=== PATIENT | female | born 1985 | race Caucasian/White ===

== ENCOUNTER 2018-03-09 14:48 | Emergency (ER) | payer MEDICAID, SELFPAY ==
[2018-03-09 15:57] VITALS: BP 96/73; PULSE 86; RESP 18; TEMP 36.9; O2SAT 98
--- NOTE | 2018-03-09 15:58 | DI.RAD_ITS ---
SYMPTOM/DIAGNOSIS: RT WRIST PAIN AFTER FALL RIGHT WRIST: Four views. Comparison is made with 08/29/15. No acute fracture or dislocation is seen. There is an oblique lucency seen through the ulnar styloid process which is visualized on the prior examination from 08/29/15. The soft tissues are unremarkable. IMPRESSION: No acute fracture or dislocation.
--- NOTE | 2018-03-09 15:59 | W.ED.GENAD ---
Discharge Plan Discharge Details Chief Complaint: Orthopedic Primary Care Provider: Jhoana Pedraza V ED Provider: Santy Loya Home Meds and New Rx's Prescriptions: No Action ibuprofen 800 MG tablet 800 mg PO Q6H PRN PRN (Reason: Pain) Qty: 20 RF: 0 Medical Decision Making 32yof with R distal radius pain after trip and fall on outstretched hand yesterday at home. No other injury. Normal neuro/motor testing. Referred for XRay which reveals question lucency through ulnar styloid and narrowing of scapholunate joint. Given patients pain she was placed in volar splint and will followup with orthopedics. HPI General Mode of arrival: ambulatory. Date/Time Provider Initiated Documentation: 03/09/18 15:47. Limitations to Documentation: no limitations. Information obtained by: patient. History of Present Illness described as mild, Quality is described as aching, and is localized to the right and upper extremity. Patient reports no radiation. Patient started experiencing this day(s) and it has been constant. No relieving factors improve symptom(s), No exacerbating factors reported . HPI Narrative: R wrist pain after trip and fall forward onto outstretched hand last night. No other injury, no numbness or tingling. Related Data Home Medications Medication Instructions Recorded Confirmed ibuprofen 800 mg PO Q6H PRN PRN #20 tablet 08/29/15 Previous Rx's Medication Instructions Recorded ibuprofen 800 mg PO Q6H PRN PRN #20 tablet 08/29/15 Allergies Allergy/AdvReac Type Severity Reaction Status Date / Time No Known Allergies Allergy Unverified 08/29/15 12:02 Review of Systems Review of Systems 11/09 o/w - [facility] Social History Smoking/Tobacco Use Status: Current every day Exam Const General: cooperative, healthy appearing, comfortable and no acute distress Chest Chest: normal palpation of entire chest wall Resp Effort & Inspection: normal respiratory effort Extrem General: normal to inspection, full ROM, normal capillary refill and other (R distal radius swelling and pain on palpation dorsal. Distal sensation intact. Pt able to make ok sign, cross index over long, touch thumb to 5th.) Psych Appearance: grossly normal Mental Status: mental status grossly normal Procedures Orthopedic Splinting/Casting Injury #1: Side: right Upper Extremity Injury Location: wrist Upper Extremity Immobilizer: volar spint Additional Comments: splinted with fiberglass
--- NOTE | 2018-03-09 16:02 | ED.GENADUL_ITS ---
Discharge Plan Discharge Details Chief Complaint: Orthopedic Primary Care Provider: Jhoana Pedraza V ED Provider: Santy Loya Home Meds and New Rx's Prescriptions: No Action ibuprofen 800 MG tablet 800 mg PO Q6H PRN PRN (Reason: Pain) Qty: 20 RF: 0 Medical Decision Making 32yof with R distal radius pain after trip and fall on outstretched hand yesterday at home. No other injury. Normal neuro/motor testing. Referred for XRay which reveals question lucency through ulnar styloid and narrowing of scapholunate joint. Given patients pain she was placed in volar splint and will followup with orthopedics. HPI General Mode of arrival: ambulatory . Date/Time Provider Initiated Documentation: 03/09/18 15:47 . Limitations to Documentation: no limitations . Information obtained by: patient . History of Present Illness described as mild, Quality is described as aching, and is localized to the right and upper extremity. Patient reports no radiation. Patient started experiencing this day(s) and it has been constant. No relieving factors improve symptom(s), No exacerbating factors reported . HPI Narrative: R wrist pain after trip and fall forward onto outstretched hand last night. No other injury, no numbness or tingling. Related Data Home Medications Medication Instructions Recorded Confirmed ibuprofen 800 mg PO Q6H PRN PRN #20 tablet 08/29/15 Previous Rx's Medication Instructions Recorded ibuprofen 800 mg PO Q6H PRN PRN #20 tablet 08/29/15 Allergies Allergy/AdvReac Type Severity Reaction Status Date / Time No Known Allergies Allergy Unverified 08/29/15 12:02 Review of Systems Review of Systems 11/09 o/w - [facility] Social History Smoking/Tobacco Use Status: Current every day Exam Const General: cooperative, healthy appearing, comfortable and no acute distress Chest Chest: normal palpation of entire chest wall Resp Effort & Inspection: normal respiratory effort Extrem General: normal to inspection, full ROM, normal capillary refill and other (R distal radius swelling and pain on palpation dorsal. Distal sensation intact. Pt able to make ok sign, cross index over long, touch thumb to 5th.) Psych Appearance: grossly normal Mental Status: mental status grossly normal Procedures Orthopedic Splinting/Casting Injury #1: Side: right Upper Extremity Injury Location: wrist Upper Extremity Immobilizer: volar spint Additional Comments: splinted with fiberglass
--- NOTE | 2018-03-09 16:44 | DI.VRAD_ITS ---
EXAM: XR Right Wrist Complete, 3 or more Views EXAM DATE/TIME: 03/09/2018 3:59 PM CLINICAL HISTORY: 32 years old, female; Pain; Wrist; Right; Patient HX: Per PT: Tripped and fell 03/08 evening TECHNIQUE: XR Right wrist 3 or more views. COMPARISON: CR RIGHT HAND COMPLETE 08/29/2015 12:45 PM FINDINGS: Bones/joints: There is narrowing of the scapholunate joint. There is a horizontal linear lucency through the ulnar styloid. Soft tissues: There is dorsal soft tissue swelling. IMPRESSION: 1. Dorsal soft tissue swelling. This is a nonspecific finding that can be seen with edema, infection, or trauma. 2. There is a horizontal linear lucency through the ulnar styloid. This is favored to represent variation in trabeculation. However, it was not definitely identified on prior examination. Differences in patient positioning may be contributing. Correlation with concern for subtle fracture in this region suggested. 3. Narrowing of the scapholunate joint. Other findings as above. If symptoms remain concerning, consider short-term followup imaging or alternative imaging modalities. Dictated and Authenticated by: Nicole Sorensen MD. Ordering:BEVERLY SIM MD
[2018-03-09 18:09] VITALS: BP 96/73; PULSE 86; RESP 18; TEMP 36.9; O2SAT 98
== END 2018-03-09 18:10 | disposition home or self-care (01) ==
PROVIDERS: Emergency Provider Emergency Medicine; PCP Family Medicine
DX: S69.91XA Unspecified injury of right wrist, hand and finger(s), initial encounter (principal); W01.0XXA Fall on same level from slipping, tripping and stumbling without subsequent striking against object, initial encounter
CPT/HCPCS: 25650; 29125; 99283; 73110

== ENCOUNTER 2018-03-17 10:27 | Outpatient (CLI) | payer MEDICAID, SELFPAY ==
--- NOTE | 2018-03-17 10:09 | DI.RAD_ITS ---
SYMPTOM/DIAGNOSIS: PAIN RIGHT WRIST: A transverse radiolucency is noted at the waist of the navicular and could represent a nondisplaced fracture or vascular groove. There is otherwise no evidence of a fracture or dislocation. If there is any further clinical question, further assessment with CT is recommended.
== END 2018-03-17 10:47 ==
PROVIDERS: PCP Family Medicine; Visit Provider Orthopaedic Surgery
DX: M25.531 Pain in right wrist (principal); R93.7 Abnormal findings on diagnostic imaging of other parts of musculoskeletal system
CPT/HCPCS: 73110

== ENCOUNTER 2018-03-31 11:05 | Outpatient (CLI) | payer MEDICAID, SELFPAY ==
--- NOTE | 2018-03-31 11:01 | DI.RAD_ITS ---
SYMPTOMS/DIAGNOSIS: INJURY RIGHT WRIST: Two views. Comparison 03/09/18. No acute or healing fracture or dislocation is identified. The soft tissues are unremarkable. IMPRESSION: No acute abnormality.
== END 2018-03-31 11:25 ==
PROVIDERS: PCP Family Medicine; Visit Provider Physician Assistant Surgical
DX: M25.531 Pain in right wrist (principal); S69.81XA Other specified injuries of right wrist, hand and finger(s), initial encounter
CPT/HCPCS: 73100

== ENCOUNTER 2018-04-17 15:46 | Inpatient (IN) | payer MEDICAID, SELFPAY ==
[2018-04-17] VITALS (62 sets, daily range): BP systolic 97–138; BP diastolic 60–102; PULSE 80–141; RESP 4–33; TEMP 37–37.3; O2SAT 92–99
--- NOTE | 2018-04-17 16:09 | W.ED.GENAD ---
Discharge Plan Disposition Patient Disposition: [facility] INPATIENT Condition: Fair Discharge Details Chief Complaint: RespSymp Clinical Impression: Acute respiratory distress, Acute bronchospasm, Bronchitis, Hypoxia Reason For Visit: ASTHMA Admit Date/Time: 04/17/18 18:51 Admit Provider: Christiano Syed Attending Provider: Christiano Syed Primary Care Provider: Jhoana ePdraza V ED Provider: Sara Miller Discharge Data Discharge Date/Time-TO BE ENTERED AT DEPARTURE: 04/17/18 19:59 Medical Decision Making 32-year-old female who presents with cough with chest congestion and shortness of breath for the past 2 and half weeks. She also complained of right ear pain, sore throat, and rhinorrhea. States the sore throat mainly occurs with cough and the right ear pain is now resolved. Heart rate 100-110s. O2 saturation 90-92% on room air. Patient is on Mirena IUD, last period 6 months ago. Denies recent travel, recent surgeries, leg pain or swelling. ENT exam within normal limits. Patient has scattered wheezing and rhonchi throughout. No leg swelling or calf tenderness. Appears most consistent with likely acute bronchitis. Will give a neb treatment and steroids and reassess. Will check a urine test. 1645 -- patient denies any relief after first neb. Will give a 5 mg neb and reassess. 1715 -- pt does not feel any better after 5mg neb. RR 30s, O2 sats 88% on RA, HR 130s. Pt appears more uncomfortable, sitting forward, accessory muscle use, poor peripheral perfusion noted in distal UE. Will place on bipap, give another neb, obtain abg. Will check labs, d dimer, ekg, cxr, give another 60mg solu-medrol, and add dose mag and bolus ivf. Pt placed on nonrebreather and sats improved to 96%. 1800 -- pt improved on bipap - RR 16-17, O2 sat 98%, HR 116. She appears more relaxed, less accessory muscle use. 1830 -- ABG notes pH of 7.39, PCO2 34, O2 sat 99%; on 70% O2 bipap. Pt's skin color/perfusion improved. Remainder of labs reviewed and notes white blood cell count 11.7. Hemoglobin 15.8. D-dimer negative at 482. Potassium 3.3. Anion gap 11.3. Lactate 2.8. Troponin negative. Chest x-ray notes minimal bilateral basilar septal line thickening suggestive of minimal interstitial disease but no other acute findings. Due to patient's acute status, on BiPAP, will admit for continued monitoring and workup. Unsure if patient presentation due to bronchitis, underlying lung disease, pneumonia. 1834 -- case discussed with hospitalist -accepts patient for admission. D/w considering CT chest for further eval. Will hold on antibiotics at this time. 1899 -- EKG notes a rate of 117, sinus tachycardia, no acute ST elevation noted, QTc 321, QRS 91. HPI General Mode of arrival: ambulatory. Date/Time Provider Initiated Documentation: 04/17/18 15:47. Limitations to Documentation: no limitations. Information obtained by: patient. HPI Narrative: Patient is a 32-year-old female who presents with cough and shortness of breath for the past 2 weeks. Patient states her symptoms started with a right earache 2-1/2 weeks ago, which then led to nasal and chest congestion. Patient states her cough is mainly dry but is occasionally productive of white or yellow sputum. Patient also admits to shortness of breath and chest pain that feels more like irritation in her chest and worse with coughing. Patient denies known fever, neck pain, sore throat. She does admit to occasional headache that happens mainly with coughing. She has been taking ibuprofen and DayQuil without relief. Past medical history: None Surgical history: None Social history: Smokes tobacco, denies alcohol or drugs. Meds: None Allergies: None LMP: 6 months ago - has IUD PCP: [facility] Related Data Home Medications Medication Instructions Recorded Confirmed ibuprofen 800 mg PO Q6H PRN PRN #20 tab 08/29/15 04/17/18 Previous Rx's Medication Instructions Recorded ibuprofen 800 mg PO Q6H PRN PRN #20 tab 08/29/15 Allergies Allergy/AdvReac Type Severity Reaction Status Date / Time No Known Allergies Allergy Unverified 04/17/18 15:53 General Stated Complaint: RespSymp SREEDHAR: 3 Review of Systems Review of Systems All systems reviewed & are unremarkable except as noted in HPI and below Constitutional Reports as per HPI, Denies chills and Denies fever(s) Eyes Denies blurry vision ENT Denies dizziness, Denies sore throat and Denies throat swelling Cardiovascular Reports chest pain and Reports dyspnea Respiratory Reports cough, Reports dyspnea and Reports wheezing Gastrointestinal Denies abdominal pain, Denies diarrhea and Denies vomiting Genitourinary Denies hematuria and Denies dysuria Musculoskeletal Denies back pain and Denies numbness Integumentary/Breasts Denies lesions and Denies rash Neurologic Denies dizziness and Denies numbness Allergic/Immunologic Denies throat swelling and Reports wheezing [facility] Social History Smoking/Tobacco Use Status: Current every day Exam Const General: cooperative and ill appearing other (mildly with cold symptoms - frequent coughing, blowing nose) Orientation: alert, awake and oriented x3 HENMT Head: normal to inspection Ears: hearing grossly normal bilaterally, external ears normal and TM's normal bilaterally General nose exam: nasal discharge (clear b/l) Face and sinus: normal facial exam Mouth: oral mucosae normal Teeth and gingiva: dentition normal Throat: posterior oropharynx normal, uvula midline, no peritonsillar masses and no uvular edema Eyes General: appearance normal, both eyes and all related structures Eyelids: eyelids normal Conjunctivae: conjunctival abnormality bilaterally conjunctival injection Pupils: PERRL EOM: EOM intact bilaterally Neck Neck: normal visual inspection Lymphatic: no lymphadenopathy noted Chest Chest: normal inspection of the chest Resp Effort & Inspection: normal respiratory effort and able to speak in complete sentences Auscultation: rhonchi lower bilaterally and wheezes lower bilaterally and upper bilaterally Cardio Rate: tachycardic Rhythm: regular rhythm GI Inspection: normal to inspection Palpation: soft, not firm, no guarding, no hepatosplenomegaly, no masses and nontender Auscultation: normal bowel sounds Skin General skin exam: no rashes or lesions noted Neuro General: alert and awake Cognition: normal cognition Speech: speech normal Gait: normal gait Motor: muscle tone normal throughout Sensory Exam: no sensory deficits noted Extrem General: normal to inspection, full ROM, normal capillary refill and no edema Psych Appearance: grossly normal Mental Status: mental status grossly normal Speech and Movement: speech and movement normal Affect: normal affect Thought Process: normal Course Vital Signs Temperature 98.6 F 04/17/18 15:49 Pulse 114 H 04/17/18 15:49 Respiratory Rate 16 04/17/18 15:49 Blood Pressure 120/71 04/17/18 15:49 Pulse Oximetry 92 L 04/17/18 15:49 Temperature 98.6 F 04/17/18 15:49 Pulse 114 H 04/17/18 15:49 Respiratory Rate 16 04/17/18 15:49 Respiratory Effort 04/17/18 15:57 Respiratory Depth Normal 04/17/18 15:57 Blood Pressure 120/71 04/17/18 15:49 Pulse Oximetry 92 L 04/17/18 15:49 Oxygen Delivery Method Room Air 04/17/18 15:49 Oxygen Flow Rate 0 04/17/18 15:49
[2018-04-17] MEDS: Albuterol/Ipratropium 3 ML UPD VIAL UPD ×2 (16:24→23:31)
[2018-04-17] MEDS: predniSONE 20 MG TAB 60 MG PO (16:42)
[2018-04-17] MEDS: Albuterol 2.5 MG/3 ML INH SOLN VIAL 5 MG UPD (16:47)
--- NOTE | 2018-04-17 17:18 | DI.RAD_ITS ---
SYMPTOM/DIAGNOSIS: COUGH, SOB PORTABLE AP CHEST: The heart is not enlarged. The lungs are predominantly clear with question of some minimal septal lines in the left lung base and possibly right lung base, probable epicardial fat pad noted on the left as well. CONCLUSION: Question minimal pulmonary interstitial infiltrates, PA and lateral chest suggested for further evaluation.
[2018-04-17] MEDS: Normal Saline 1,000 ML 1000 ML IV ×2 (17:36→18:58)
[2018-04-17] MEDS: methylPREDNISolone SUCC 125 MG VIAL 60 MG IVP (17:36)
[2018-04-17] MEDS: MAGNESIUM SULFATE 2 GM/50 ML BAG IVPB (17:36)
[2018-04-17 17:38] LABS: Abs Immature Grans 0.02 k/cumm (0.0-0.09); Absolute Eosinophil Count 0.06 k/cumm (0.0-0.7); Absolute Lymphocyte Count 2.53 k/cumm (1.2-3.4); Absolute Monocyte Count 0.56 k/cumm (0.11-0.7); Basophils % 0.3; Eosinophils % 0.5; HCT 46.4 % (36.0-46.0); HGB 15.8 g/dL (12.0-15.5); Immature Grans % 0.2; Lymphocytes % 21.6; Mean Corp. HGB Concentration 34.1 g/dL (32.0-36.0); Mean Corpuscular Hemoglobin 30.9 pg (27.0-33.0); Mean Corpuscular Volume 90.6 fL (80-95); Mean Platelet Volume 9.5 fL (8.0-11.0); Monocytes % 4.8; Neutrophils % 72.6; Platelet Count 276 x1000/uL (130-400); RBC 5.12 m/cumm (4.00-5.20); RBC Distribution Width 13.3 % (11.7-14.6)
[2018-04-17 17:47] LABS: Absolute Basophil Count 0.04 k/cumm (0.0-0.2); Absolute Neutrophil Count 8.49 k/cumm (1.2-6.7)
[2018-04-17 18:06] LABS: ALT 34 U/L (12-78); AST 17 U/L (15-37); Albumin 3.9 g/dL (3.4-5.0); Alkaline Phosphatase 108 U/L (46-116); Anion Gap 11.3 mmol/L (3-11); BUN 17 mg/dL (7-18); Bilirubin, Total 0.5 mg/dL (0.2-1.0); CO2 24.7 mmol/L (21.0-32.0); CREATININE 1.06 mg/dL (0.55-1.02); Calcium 9.3 mg/dL (8.5-10.1); Chloride 101 mmol/L (98-107); D-Dimer 482 ng/mlFEU (<500); Glucose 126 mg/dL (70-100); Magnesium 1.9 mg/dL (1.8-2.4); Potassium 3.3 mmol/L (3.5-5.1); Sodium 137 mmol/L (136-145); Total Protein 8.4 g/dL (6.4-8.2)
[2018-04-17 18:07] LABS: Troponin I < 0.02 ng/mL (0.00-0.06)
--- NOTE | 2018-04-17 18:07 | DI.VRAD_ITS ---
EXAM: XR Chest, 1 View EXAM DATE/TIME: 04/17/2018 5:21 PM CLINICAL HISTORY: 32 years old, female; Signs and symptoms; Shortness of breath TECHNIQUE: XR of the chest, 1 view. COMPARISON: No relevant prior studies available. FINDINGS: Lungs: Minimal septal line thickening within both lateral lung bases. No pulmonary vascular congestion. No pulmonary consolidation. Pleural space: No pleural effusion or pneumothorax. Heart/Mediastinum: Hazy density at the cardiac apex, likely epicardiac fat. Unremarkable cardiomediastinal silhouette. Bones/joints: Unremarkable. IMPRESSION: Minimal bilateral basilar septal line thickening suggestive of minimal interstitial disease. Dictated and Authenticated by: Brandon Frias MD. Ordering:TRACEY BAUER MD
[2018-04-17 18:19] LABS: Lactate-non-spesis 2.8 mmol/L (0.6-1.4)
[2018-04-17] MEDS: MORPHine 10 MG/ML VIAL 4 MG IVP (18:20)
[2018-04-17 18:31] LABS: HCO3 21 mmol/L (22-28); pCO2 34 mmHg (34-47); pH 7.39 (7.35-7.45); pO2 127 mmHg (83-108); sO2 99 % (94-98); tCO2 18 mmol/L (22-29)
[2018-04-17 18:34] LABS: FIO2 70 %; Site Left Radial
--- NOTE | 2018-04-17 18:51 | HPE_ITS ---
Date of service: 04/17/18 Time of Service: 18:41 Assessment and Plan (1) Asthma: Current visit: No Status: Chronic Asthma, new onset. Yet to break but seems to be starting to go in right direction. Will continue steroids and updrafts. I don't see indication for antibiotics at present but low threshold to add. Have advised she stop smoking of course. History of Present Illness Chief Complaint: sob Narrative: Patient is a 32-year-old female smoker with no past medical history and no prior history of bronchospasm she comes emergency with 2 weeks of dry cough and increasing shortness of breath. In the emergency room and wrist area initial oxygen saturations were in the 80s and diffuse wheezing was noted. Patient was given updraft x2 along with IV steroids. Due to continuing respiratory distress she was placed on BiPAP she states that she feels significantly better at present. She was admitted for further evaluation and management Review of Systems Review of Systems All systems reviewed & are unremarkable except as noted in HPI and below PFSH Social History Smoking/Tobacco Use Status: Current every day Meds Home Medications Medication Instructions Recorded Confirmed Type ibuprofen 800 mg PO Q6H PRN PRN #20 tab 08/29/15 04/17/18 Rx Allergies Allergy/AdvReac Type Severity Reaction Status Date / Time No Known Allergies Allergy Unverified 04/17/18 15:53 Exam Narrative Exam Narrative: BP 120/71, pulse 110. rr 18, afebrile. HEENT unremarkable. Neck supple. Lungs diffuse wheeze. Heart tachy and regular. Abdomen soft and non- tender. Extremities without edema, calves non-tender. Results Labs : 04/17/18 17:20 04/17/18 17:20 Laboratory Results - last 24 hr 04/17/18 04/17/18 04/17/18 17:20 17:20 17:20 WBC 11.70 H RBC 5.12 Hgb 15.8 H Hct 46.4 H MCV 90.6 MCH 30.9 MCHC 34.1 RDW 13.3 Plt Count 276 MPV 9.5 Immature Gran % 0.2 Neutrophils % 72.6 Lymphocytes % 21.6 Monocytes % 4.8 Eosinophils % 0.5 Basophils % 0.3 Absolute Neutrophils 8.49 H Absolute Lymphocytes 2.53 Absolute Monocytes 0.56 Absolute Eosinophils 0.06 Absolute Basophils 0.04 D-Dimer 482 Sample Site pCO2 pO2 O2 Saturation ABG pH ABG HCO3 ABG Total CO2 ABG Base Excess FiO2 Sodium 137 Potassium 3.3 L Chloride 101 Carbon Dioxide 24.7 Anion Gap 11.3 H BUN 17 Creatinine 1.06 H Estimated GFR/1.73 m2 >= 60.00 Glucose 126 H Lactate Calcium 9.3 Magnesium 1.9 Total Bilirubin 0.5 AST 17 ALT 34 Alkaline Phosphatase 108 Troponin I < 0.02 Total Protein 8.4 H Albumin 3.9 04/17/18 04/17/18 17:39 18:05 WBC RBC Hgb Hct MCV MCH MCHC RDW Plt Count MPV Immature Gran % Neutrophils % Lymphocytes % Monocytes % Eosinophils % Basophils % Absolute Neutrophils Absolute Lymphocytes Absolute Monocytes Absolute Eosinophils Absolute Basophils D-Dimer Sample Site Left radial pCO2 34 pO2 127 H O2 Saturation 99 H ABG pH 7.39 ABG HCO3 21 L ABG Total CO2 18 L ABG Base Excess FiO2 70 Sodium Potassium Chloride Carbon Dioxide Anion Gap BUN Creatinine Estimated GFR/1.73 m2 Glucose Lactate 2.8 H Calcium Magnesium Total Bilirubin AST ALT Alkaline Phosphatase Troponin I Total Protein Albumin Last Vital Signs Temp 37.0 C 04/17/18 15:49 Pulse 114 H 04/17/18 15:49 Resp 16 04/17/18 15:49 BP 120/71 04/17/18 15:49 Pulse Ox 92 L 04/17/18 16:24
[2018-04-18] VITALS (33 sets, daily range): BP systolic 98–122; BP diastolic 58–88; PULSE 52–109; RESP 2–26; TEMP 36.1–36.7; O2SAT 90–98
[2018-04-18] MEDS: methylPREDNISolone SUCC 40 MG VIAL IVP ×4 (02:29→19:44)
[2018-04-18] MEDS: Albuterol/Ipratropium 3 ML UPD VIAL UPD ×5 (06:51→21:56)
[2018-04-18 07:20] LABS: Potassium 4.7 mmol/L (3.5-5.1)
[2018-04-18] MEDS: Normal Saline Flush 10 ML SYR (07:37)
[2018-04-18] MEDS: Lactated Ringers 1,000 ML 100 ML IV (07:38)
[2018-04-18] MEDS: Acetaminophen 325 MG TAB 650 MG PO ×2 (07:40→15:53)
--- NOTE | 2018-04-18 07:50 | PDOC.CMIN ---
Care Management Initial Assess REASON FOR HOSPITALIZATION:: Asthma: Acute respiratory distress, Acute bronchospasm, Bronchitis, Hypoxia PAST MEDICAL HISTORY/PAST SURGICAL HISTORY:: Asthma, Mirena IUD, current everyday smoker PREVIOUS FUNCTIONAL STATUS/SOCIAL/FAMILY SUPPORTS:: Jolene resides in [place] with her mother and her three year old daughter; Sarah. 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 She is independent with all ADLs in the community. CURRENT FUNCTIONAL STATUS:: Jolene is short of breath but fully engaged when meets with her. She is pleasant in interaction. ADVANCE DIRECTIVES:: None on file at [facility] Has patient been provided with information about the portal?: Yes Did the patient sign up for the portal?: No CODE STATUS:: Full Code INSURANCE COVERAGE / FINANCIAL ISSUES:: Medicaid CURRENT HOME/COMMUNITY SERVICES/EQUIPMENT:: No current services or equipment. PRIMARY CARE PHYSICIAN:: Jhoana Pedraza POTENTIAL DISCHARGE NEEDS:: Follow up appointments with PCP-evaluation for further respiratory needs. PATIENT/FAMILY EDUCATION NEEDS:: Review of discharge instructions; discuss Ask Me Three. ANTICIPATED BARRIERS TO DISCHARGE:: None identified. TRANSPORTATION:: Via private vehicle with family. PLAN:: Jolene will return home when ready per MD. No additionals services anticipated at this time. She will transport home with family and follow up with her PCP regarding new prescriptions and follow up care.
--- NOTE | 2018-04-18 07:56 | INITIAL_ITS ---
Care Management Initial Assess REASON FOR HOSPITALIZATION:: Asthma: Acute respiratory distress, Acute bronchospasm, Bronchitis, Hypoxia PAST MEDICAL HISTORY/PAST SURGICAL HISTORY:: Asthma, Mirena IUD, current everyday smoker PREVIOUS FUNCTIONAL STATUS/SOCIAL/FAMILY SUPPORTS:: Jolene resides in [place] with her mother and her three year old daughter; Sarah. 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 She is independent with all ADLs in the community. CURRENT FUNCTIONAL STATUS:: Jolene is short of breath but fully engaged when meets with her. She is pleasant in interaction. ADVANCE DIRECTIVES:: None on file at [facility] Has patient been provided with information about the portal?: Yes Did the patient sign up for the portal?: No CODE STATUS:: Full Code INSURANCE COVERAGE / FINANCIAL ISSUES:: Medicaid CURRENT HOME/COMMUNITY SERVICES/EQUIPMENT:: No current services or equipment. PRIMARY CARE PHYSICIAN:: Jhoana Pedraza POTENTIAL DISCHARGE NEEDS:: Follow up appointments with PCP-evaluation for further respiratory needs. PATIENT/FAMILY EDUCATION NEEDS:: Review of discharge instructions; discuss Ask Me Three. ANTICIPATED BARRIERS TO DISCHARGE:: None identified. TRANSPORTATION:: Via private vehicle with family. PLAN:: Jolene will return home when ready per MD. No additionals services anticipated at this time. She will transport home with family and follow up with her PCP regarding new prescriptions and follow up care.
[2018-04-18] MEDS: Normal Saline 250 ML IV (08:29)
[2018-04-18 08:32] LABS: Lactate-non-spesis 1.2 mmol/L (0.6-1.4)
[2018-04-18] MEDS: LEVOFLOXACIN 750 MG/150 ML BAG 150 MG IVPB (08:37)
[2018-04-18] MEDS: Pantoprazole 40 MG VIAL IVP (08:37)
[2018-04-18 08:42] LABS: Abs Immature Grans 0.03 k/cumm (0.0-0.09); Absolute Basophil Count 0.01 k/cumm (0.0-0.2); Absolute Lymphocyte Count 0.98 k/cumm (1.2-3.4); Absolute Monocyte Count 0.16 k/cumm (0.11-0.7); Absolute Neutrophil Count 11.07 k/cumm (1.2-6.7); Anion Gap 11.6 mmol/L (3-11); BUN 14 mg/dL (7-18); Basophils % 0.1; CO2 21.4 mmol/L (21.0-32.0); CREATININE 0.72 mg/dL (0.55-1.02); Chloride 105 mmol/L (98-107); Glucose 141 mg/dL (70-100); HGB 13.3 g/dL (12.0-15.5); Immature Grans % 0.2; Mean Corp. HGB Concentration 33.3 g/dL (32.0-36.0); Mean Corpuscular Hemoglobin 30.8 pg (27.0-33.0); Mean Corpuscular Volume 92.6 fL (80-95); Mean Platelet Volume 9.7 fL (8.0-11.0); Monocytes % 1.3; Neutrophils % 90.4; Platelet Count 336 x1000/uL (130-400); Potassium 4.7 mmol/L (3.5-5.1); RBC 4.32 m/cumm (4.00-5.20); RBC Distribution Width 13.2 % (11.7-14.6); Sodium 138 mmol/L (136-145); White Blood Cell Count 12.25 k/cumm (4.4-10.8)
--- NOTE | 2018-04-18 09:39 | PHARADMIT ---
Addendum entered by Chevy Ngo III 04/20/18 13:28: Pharmacy Note Subjective REACTIVE AIRWAY DISEASE EXACERBATION OF ASTHMA IN SMOKER. Flu negative, blood -no growth x 48 hrs. Objective VS-OK HR-95 Labs-WNL WBC-10.74 Assessment DuONEBs decreased due to heart racing, Diltiazem 30mg po tid started IV Steroids to Prednisone, Receiving Nicotine replacement. Plan Experience short burst of SVT, Zio patch discussed Original Note: Admission Pharmacy Clinical Review asthma Code Status Full Code Current Weight 72.1 kg Renally Cleared and Narrow Therapeutic Index Meds Crcl ~87.98 mL/min current meds okay QTc Value / Action Taken QTc 321 BP Control, Fever BP 110/67 afebrile Electrolytes reviewed within normal limits DVT Prophylaxis enoxaparin Opiate Usage / Scheduled Bowel Regimen Ordered no/no Plt/SCr for Heparin / Enoxaparin plt 336 SCr 0.72 INR for Warfarin n/a H/H stable, WBC/Bands h/h 13.3/40.0 wbc 12.25 Antibiotic appropriateness levofloxacin Cultures and Sensitivities blood cultures pending Surgical ABX d/c within 24 hr n/a DM control / Insulin Dosing BG 141 none Heart Failure (Check EF%) (SAMANTHA's, B-Block, Diuretics) none IV to PO Switch n/a Home Meds Reviewed yes Home Meds Not Ordered ibuprofen (PRN) Comments
[2018-04-18] MEDS: Enoxaparin 40 MG/0.4 ML SYR SC (10:37)
--- NOTE | 2018-04-18 13:47 | W.PM.PROGNOT ---
Date of Service Date of service: 04/18/18 Time of Service: 13:50 Assessment and Plan (1) Reactive airway disease: Current visit: Yes Status: Acute Patient with significant wheezing, hypoxia, and dyspnea in setting of likely bacterial Tracheobronchitis and potential underlying obstructive lung disease (Childhood Asthma, History of tobacco use), with potential pneumonia based on CXR read and physical exam. Will also check rapid flu. Blood Cultures obtained and pending. Sputum cultures ordered. Continue but increase IV Steroids and add daily pulmonary Fluoroquinolone therapy. Continue but increase frequency of Duonebs, and initiate inhaled Budesonide. Continue Albuterol and BiPAP on a prn basis. Patient appears improved. (2) Tobacco use: Current visit: Yes Status: Chronic Initiate NRT now, and encourage cessation in the future. (3) DVT prophylaxis: Current visit: Yes Status: Acute SC Lovenox Subjective Interval history since last seen: 32 year old woman with a past medical history significant for childhood asthma and current everyday tobacco use admitted from [facility] Emergency Department on 04/17 with dyspnea. Ms. Carlin reports an approximate 2 week history of coughing with increasing Dysnea. Work-up revealed evidence of a mild leukocytosis, elevated lactate, noted hypoxia and tachypnea, as well as potential minimal bilateral interstitial disease on CXR. Her respiratory distress eventually required treatment with BiPAP, which was continued overnight. By this morning the patient reports vast improvement in her overall symptoms, but with continued dyspnea and wheezing. No overnight events reported. She remains afebrile. Exam Narrative Exam Narrative: General: Patient appears comfortable sitting up in bed, AAOX3, NAD Neck: Supple CV: Regular, mildly tachycardic, S1S2, No rubs, murmurs, or gallops. Pulmonary: Bibasilar crackles and rhonchi, diffuse wheezing with good air entry. Abdomen: + Bowel Sounds, soft, nontender, nondistended Vascular: No lower extremity edema Psych: Normal mood and affect. Objective Objective Clinical Data: Abnormal lab results 04/17/18 04/17/18 04/17/18 Range/Units 17:20 17:20 17:39 WBC 11.70 H (4.4-10.8) k/cumm Hgb 15.8 H (12.0-15.5) g/dL Hct 46.4 H (36.0-46.0) % Absolute Neutrophils 8.49 H (1.2-6.7) k/cumm Absolute Lymphocytes (1.2-3.4) k/cumm pO2 127 H (83-108) mmHg O2 Saturation 99 H (94-98) % ABG HCO3 21 L (22-28) mmol/L ABG Total CO2 18 L (22-29) mmol/L Potassium 3.3 L (3.5-5.1) mmol/L Anion Gap 11.3 H (3-11) mmol/L Creatinine 1.06 H (0.55-1.02) mg/dL Glucose 126 H (70-100) mg/dL Lactate (0.6-1.4) mmol/L Total Protein 8.4 H (6.4-8.2) g/dL 04/17/18 04/18/18 04/18/18 Range/Units 18:05 08:22 08:22 WBC 12.25 H (4.4-10.8) k/cumm Hgb (12.0-15.5) g/dL Hct (36.0-46.0) % Absolute Neutrophils 11.07 H (1.2-6.7) k/cumm Absolute Lymphocytes 0.98 L (1.2-3.4) k/cumm pO2 (83-108) mmHg O2 Saturation (94-98) % ABG HCO3 (22-28) mmol/L ABG Total CO2 (22-29) mmol/L Potassium (3.5-5.1) mmol/L Anion Gap 11.6 H (3-11) mmol/L Creatinine (0.55-1.02) mg/dL Glucose 141 H (70-100) mg/dL Lactate 2.8 H (0.6-1.4) mmol/L Total Protein (6.4-8.2) g/dL Vital Signs Temperature 36.5 C 04/18/18 12:17 Temperature Source Tympanic 04/18/18 12:17 Pulse 86 04/18/18 12:17 Pulse 84 04/18/18 10:01 Respiratory Rate 23 04/18/18 12:17 Respiratory Effort 04/18/18 12:17 Respiratory Depth Shallow 04/18/18 12:17 Respiratory Pattern Normal 04/18/18 12:17 Blood Pressure 112/77 04/18/18 12:17 Blood Pressure Mean 88 04/18/18 12:17 Blood Pressure Position Sitting 04/18/18 12:17 Pulse Oximetry 93 L 04/18/18 12:17 Oxygen Delivery Method Nasal Cannula 04/18/18 12:17 Oxygen Flow Rate 6 04/18/18 12:17 Fraction of Inspired Oxygen (FIO2) 60 04/18/18 07:09 Pain Level 0 04/18/18 12:17 Intake & Output 04/17/18 04/18/18 04/18/18 23:59 11:59 23:59 Intake Total 2049 Output Total 800 / 800 Balance 2049 -790 / -790 Weight 71.8 kg 72.1 kg Intake: IV 2049 Output: Urine 800 / 800 Other: Urine Color Light Eliza Urine Appearance Clear Urine Odor None Voiding Methods Bedside Commode Laboratory Results WBC 12.25 k/cumm (4.4-10.8) H 04/18/18 08:22 RBC 4.32 m/cumm (4.00-5.20) 04/18/18 08:22 Hgb 13.3 g/dL (12.0-15.5) D 04/18/18 08:22 Hct 40.0 % (36.0-46.0) 04/18/18 08:22 MCV 92.6 fL (80-95) 04/18/18 08:22 MCH 30.8 pg (27.0-33.0) 04/18/18 08:22 MCHC 33.3 g/dL (32.0-36.0) 04/18/18 08:22 RDW 13.2 % (11.7-14.6) 04/18/18 08:22 Plt Count 336 x1000/uL (130-400) 04/18/18 08:22 MPV 9.7 fL (8.0-11.0) 04/18/18 08:22 Immature Gran % 0.2 04/18/18 08:22 Neutrophils % 90.4 04/18/18 08:22 Lymphocytes % 8.0 04/18/18 08:22 Monocytes % 1.3 04/18/18 08:22 Eosinophils % 0.0 04/18/18 08:22 Basophils % 0.1 04/18/18 08:22 Absolute Neutrophils 11.07 k/cumm (1.2-6.7) H 04/18/18 08:22 Absolute Lymphocytes 0.98 k/cumm (1.2-3.4) L 04/18/18 08:22 Absolute Monocytes 0.16 k/cumm (0.11-0.7) 04/18/18 08:22 Absolute Eosinophils 0.00 k/cumm (0.0-0.7) 04/18/18 08:22 Absolute Basophils 0.01 k/cumm (0.0-0.2) 04/18/18 08:22 D-Dimer 482 ng/mlFEU (<500) 04/17/18 17:20 Sample Site Left radial 04/17/18 17:39 pCO2 34 mmHg (34-47) 04/17/18 17:39 pO2 127 mmHg (83-108) H 04/17/18 17:39 O2 Saturation 99 % (94-98) H 04/17/18 17:39 ABG pH 7.39 (7.35-7.45) 04/17/18 17:39 ABG HCO3 21 mmol/L (22-28) L 04/17/18 17:39 ABG Total CO2 18 mmol/L (22-29) L 04/17/18 17:39 ABG Base Excess mmol/L (-3-3) 04/17/18 17:39 FiO2 70 % 04/17/18 17:39 Sodium 138 mmol/L (136-145) 04/18/18 08:22 Potassium 4.7 mmol/L (3.5-5.1) 04/18/18 08:22 Chloride 105 mmol/L (98-107) 04/18/18 08:22 Carbon Dioxide 21.4 mmol/L (21.0-32.0) 04/18/18 08:22 Anion Gap 11.6 mmol/L (3-11) H 04/18/18 08:22 BUN 14 mg/dL (7-18) 04/18/18 08:22 Creatinine 0.72 mg/dL (0.55-1.02) 04/18/18 08:22 Estimated GFR/1.73 m2 >= 60.00 (mL/min/1.73m2) 04/18/18 08:22 Glucose 141 mg/dL (70-100) H 04/18/18 08:22 Lactate 1.2 mmol/L (0.6-1.4) 04/18/18 08:22 Calcium 9.0 mg/dL (8.5-10.1) 04/18/18 08:22 Magnesium 1.9 mg/dL (1.8-2.4) 04/17/18 17:20 Total Bilirubin 0.5 mg/dL (0.2-1.0) 04/17/18 17:20 AST 17 U/L (15-37) 04/17/18 17:20 ALT 34 U/L (12-78) 04/17/18 17:20 Alkaline Phosphatase 108 U/L (46-116) 04/17/18 17:20 Troponin I < 0.02 ng/mL (0.00-0.06) 04/17/18 17:20 Total Protein 8.4 g/dL (6.4-8.2) H 04/17/18 17:20 Albumin 3.9 g/dL (3.4-5.0) 04/17/18 17:20
[2018-04-18] MEDS: Normal Saline 1,000 ML 125 ML IV ×2 (13:55→21:55)
[2018-04-18] MEDS: Nicotine 14 MG/24 HR PATCH TD (14:13)
[2018-04-18] MEDS: Albuterol 2.5 MG/3 ML INH SOLN VIAL UPD (16:31)
[2018-04-18] MEDS: Budesonide 0.5 MG/2 ML UPD VIAL UPD (18:17)
[2018-04-18] MEDS: LORazepam 0.5 MG TAB PO (19:42)
[2018-04-18] MEDS: Ibuprofen 600 MG TAB PO (21:55)
[2018-04-19] VITALS (36 sets, daily range): BP systolic 101–124; BP diastolic 66–84; PULSE 52–113; RESP 8–24; TEMP 36.6–37.4; O2SAT 92–100
[2018-04-19] MEDS: diphenhydrAMINE 25 MG CAP 50 MG PO (00:01)
[2018-04-19] MEDS: Albuterol/Ipratropium 3 ML UPD VIAL UPD ×5 (02:04→21:48)
[2018-04-19] MEDS: methylPREDNISolone SUCC 40 MG VIAL IVP ×2 (02:05→08:16)
[2018-04-19] MEDS: Normal Saline 1,000 ML 125 ML IV (06:03)
[2018-04-19] MEDS: Albuterol 2.5 MG/3 ML INH SOLN VIAL UPD (06:52)
[2018-04-19] MEDS: Budesonide 0.5 MG/2 ML UPD VIAL UPD ×2 (07:04→18:45)
[2018-04-19 07:20] LABS: Abs Immature Grans 0.04 k/cumm (0.0-0.09); Absolute Monocyte Count 0.33 k/cumm (0.11-0.7); HCT 38.3 % (36.0-46.0); HGB 12.6 g/dL (12.0-15.5); Immature Grans % 0.3; Lymphocytes % 6.6; Mean Corp. HGB Concentration 32.9 g/dL (32.0-36.0); Mean Corpuscular Hemoglobin 30.8 pg (27.0-33.0); Mean Corpuscular Volume 93.6 fL (80-95); Monocytes % 2.2; Neutrophils % 90.9; Platelet Count 299 x1000/uL (130-400); RBC 4.09 m/cumm (4.00-5.20); RBC Distribution Width 13.1 % (11.7-14.6); White Blood Cell Count 14.96 k/cumm (4.4-10.8)
[2018-04-19 07:22] LABS: Absolute Lymphocyte Count 0.99 k/cumm (1.2-3.4)
[2018-04-19 07:30] LABS: Anion Gap 10.9 mmol/L (3-11); BUN 16 mg/dL (7-18); CO2 22.1 mmol/L (21.0-32.0); CREATININE 0.72 mg/dL (0.55-1.02); Calcium 8.7 mg/dL (8.5-10.1); Chloride 107 mmol/L (98-107); Glucose 122 mg/dL (70-100); Potassium 4.3 mmol/L (3.5-5.1); Sodium 140 mmol/L (136-145)
[2018-04-19] MEDS: Pantoprazole 40 MG VIAL IVP (08:16)
[2018-04-19] MEDS: Enoxaparin 40 MG/0.4 ML SYR SC (08:16)
[2018-04-19] MEDS: Normal Saline Flush 10 ML SYR (08:17)
[2018-04-19] MEDS: Nicotine 14 MG/24 HR PATCH TD (08:17)
[2018-04-19] MEDS: LEVOFLOXACIN 750 MG/150 ML BAG 100 MG IVPB (08:28)
--- NOTE | 2018-04-19 08:35 | PDOC.CMPRO ---
- If Service Date Differs Date of service: 04/19/18 Time of Service: 08:35 Care Management Progress Note S/O: Jolene is lying in bed eating breakfast when CM visits this morning. She remains in the ICU at present time but will be transferred to [place] status today. Jolene is talkative, engaged in conversation, and makes good eye contact. She reports feeling much improved today and is hopeful for discharging home. Jolene does not appear to be in any respiratory distress, though does continue to receive supplemental O2 via NC, have scheduled breathing treatments administered, and utilize a BiPap at night. A: 32 year old female admitted with asthma exacerbation. P: Jolene will discharge home when medically ready per MD. Anticipate patient will discharge with no services and follow up with her PCP. Jolene will transport via private vehicle with her mother. CM will continue to offer support to patient and care team regarding discharge planning and disposition.
--- NOTE | 2018-04-19 08:41 | CMPROGNOTE_ITS ---
- If Service Date Differs Date of service: 04/19/18 Time of Service: 08:35 Care Management Progress Note S/O: Jolene is lying in bed eating breakfast when CM visits this morning. She remains in the ICU at present time but will be transferred to [place] status today. Jolene is talkative, engaged in conversation, and makes good eye contact. She reports feeling much improved today and is hopeful for discharging home. Jolene does not appear to be in any respiratory distress, though does continue to receive supplemental O2 via NC, have scheduled breathing treatments administered, and utilize a BiPap at night. A: 32 year old female admitted with asthma exacerbation. P: Jolene will discharge home when medically ready per MD. Anticipate patient will discharge with no services and follow up with her PCP. Jolene will transport via private vehicle with her mother. CM will continue to offer support to patient and care team regarding discharge planning and disposition.
--- NOTE | 2018-04-19 14:17 | PGE_ITS ---
Date of Service Date of service: 04/19/18 Time of Service: 14:12 Assessment and Plan (1) Reactive airway disease: Current visit: Yes Status: Acute Patient with significant wheezing, hypoxia, and dyspnea in setting of likely bacterial Tracheobronchitis and potential underlying obstructive lung disease (Childhood Asthma, History of tobacco use), with potential pneumonia based on CXR read and physical exam. Rapid influenza checked and negative. Blood Cultures obtained and with no growth X24 hours. Sputum cultures ordered but not yet collected. Continue but wean steroids Steroids. Continue Levofloxacin Day #2, Duonebs, and inhaled Budesonide. Continue Albuterol and BiPAP on a prn basis. Patient appears improved. No longer required ICU level care - will transfer to Med Surg. (2) Tobacco use: Current visit: Yes Status: Chronic Initiate NRT now, and encourage cessation in the future. (3) DVT prophylaxis: Current visit: Yes Status: Acute SC Lovenox Subjective Interval history since last seen: 32 year old woman with a past medical history significant for childhood asthma and current everyday tobacco use admitted from [facility] Emergency Department on 04/17 with dyspnea. Ms. Carlin reports an approximate 2 week history of coughing with increasing Dysnea. Work-up revealed evidence of a mild leukocytosis, elevated lactate, noted hypoxia and tachypnea, as well as potential minimal bilateral interstitial disease on CXR. Her respiratory distress eventually required treatment with BiPAP, which was continued overnight following her admission. However, she has since done very well, with improvement overall. She is still requiring supplemental oxygen and continues to have wheezing, albeit improved.No overnight events reported. She remains afebrile. Exam Narrative Exam Narrative: General: Patient appears comfortable sitting up in bed, AAOX3, NAD Neck: Supple CV: Regular, mildly tachycardic, S1S2, No rubs, murmurs, or gallops. Pulmonary: Bibasilar crackles and rhonchi, diffuse wheezing with good air entry - all improved. Abdomen: + Bowel Sounds, soft, nontender, nondistended Vascular: No lower extremity edema Psych: Normal mood and affect. Objective Objective Clinical Data: Abnormal lab results 04/19/18 04/19/18 Range/Units 06:20 06:20 WBC 14.96 H (4.4-10.8) k/cumm Absolute Neutrophils 13.60 H (1.2-6.7) k/cumm Absolute Lymphocytes 0.99 L (1.2-3.4) k/cumm Glucose 122 H (70-100) mg/dL Vital Signs Temperature 37.4 C 04/19/18 13:38 Temperature Source Temporal Artery Scan 04/19/18 13:38 Pulse 100 H 04/19/18 11:11 Pulse 79 04/19/18 06:00 Respiratory Rate 22 04/19/18 11:11 Respiratory Effort Non-Labored 04/19/18 13:38 Respiratory Depth Normal 04/19/18 13:38 Respiratory Pattern Normal 04/19/18 13:38 Blood Pressure 119/79 04/19/18 06:00 Blood Pressure Mean 88 04/19/18 06:00 Blood Pressure Position Supine 04/19/18 13:38 Pulse Oximetry 93 L 04/19/18 11:11 Oxygen Delivery Method Room Air 04/19/18 13:38 Oxygen Flow Rate 0 04/19/18 13:38 Fraction of Inspired Oxygen (FIO2) 60 04/19/18 07:02 Pain Level 0 04/19/18 13:38 Intake & Output 04/18/18 04/19/18 04/19/18 23:59 11:59 23:59 Intake Total 2490 / 2490 1000 / 1000 Output Total 1300 / 1300 0 / 0 Balance 1190 / 1190 1000 / 1000 Weight 71 kg Intake: IV 2049 / 0 1000 / 1000 Oral 440 / 440 Output: Urine 1300 / 1300 0 / 0 Other: Urine Color Yellow Urine Appearance Clear Urine Odor None Comment voids on commode No void my shift, pt states this is perfectly normal for her. Voiding Methods Bedside Commode Laboratory Results WBC 14.96 k/cumm (4.4-10.8) H 04/19/18 06:20 RBC 4.09 m/cumm (4.00-5.20) 04/19/18 06:20 Hgb 12.6 g/dL (12.0-15.5) 04/19/18 06:20 Hct 38.3 % (36.0-46.0) 04/19/18 06:20 MCV 93.6 fL (80-95) 04/19/18 06:20 MCH 30.8 pg (27.0-33.0) 04/19/18 06:20 MCHC 32.9 g/dL (32.0-36.0) 04/19/18 06:20 RDW 13.1 % (11.7-14.6) 04/19/18 06:20 Plt Count 299 x1000/uL (130-400) 04/19/18 06:20 MPV 10.0 fL (8.0-11.0) 04/19/18 06:20 Immature Gran % 0.3 04/19/18 06:20 Neutrophils % 90.9 04/19/18 06:20 Lymphocytes % 6.6 04/19/18 06:20 Monocytes % 2.2 04/19/18 06:20 Eosinophils % 0.0 04/19/18 06:20 Basophils % 0.0 04/19/18 06:20 Absolute Neutrophils 13.60 k/cumm (1.2-6.7) H 04/19/18 06:20 Absolute Lymphocytes 0.99 k/cumm (1.2-3.4) L 04/19/18 06:20 Absolute Monocytes 0.33 k/cumm (0.11-0.7) 04/19/18 06:20 Absolute Eosinophils 0.00 k/cumm (0.0-0.7) 04/19/18 06:20 Absolute Basophils 0.00 k/cumm (0.0-0.2) 04/19/18 06:20 D-Dimer 482 ng/mlFEU (<500) 04/17/18 17:20 Sample Site Left radial 04/17/18 17:39 pCO2 34 mmHg (34-47) 04/17/18 17:39 pO2 127 mmHg (83-108) H 04/17/18 17:39 O2 Saturation 99 % (94-98) H 04/17/18 17:39 ABG pH 7.39 (7.35-7.45) 04/17/18 17:39 ABG HCO3 21 mmol/L (22-28) L 04/17/18 17:39 ABG Total CO2 18 mmol/L (22-29) L 04/17/18 17:39 ABG Base Excess mmol/L (-3-3) 04/17/18 17:39 FiO2 70 % 04/17/18 17:39 Sodium 140 mmol/L (136-145) 04/19/18 06:20 Potassium 4.3 mmol/L (3.5-5.1) 04/19/18 06:20 Chloride 107 mmol/L (98-107) 04/19/18 06:20 Carbon Dioxide 22.1 mmol/L (21.0-32.0) 04/19/18 06:20 Anion Gap 10.9 mmol/L (3-11) 04/19/18 06:20 BUN 16 mg/dL (7-18) 04/19/18 06:20 Creatinine 0.72 mg/dL (0.55-1.02) 04/19/18 06:20 Estimated GFR/1.73 m2 >= 60.00 (mL/min/1.73m2) 04/19/18 06:20 Glucose 122 mg/dL (70-100) H 04/19/18 06:20 Lactate 1.2 mmol/L (0.6-1.4) 04/18/18 08:22 Calcium 8.7 mg/dL (8.5-10.1) 04/19/18 06:20 Magnesium 1.9 mg/dL (1.8-2.4) 04/17/18 17:20 Total Bilirubin 0.5 mg/dL (0.2-1.0) 04/17/18 17:20 AST 17 U/L (15-37) 04/17/18 17:20 ALT 34 U/L (12-78) 04/17/18 17:20 Alkaline Phosphatase 108 U/L (46-116) 04/17/18 17:20 Troponin I < 0.02 ng/mL (0.00-0.06) 04/17/18 17:20 Total Protein 8.4 g/dL (6.4-8.2) H 04/17/18 17:20 Albumin 3.9 g/dL (3.4-5.0) 04/17/18 17:20
[2018-04-19] MEDS: predniSONE 20 MG TAB 40 MG PO (19:21)
[2018-04-20] VITALS (23 sets, daily range): BP systolic 114–122; BP diastolic 71–85; PULSE 78–185; RESP 1–30; TEMP 36.7–37.3; O2SAT 90–95
[2018-04-20] MEDS: Albuterol/Ipratropium 3 ML UPD VIAL UPD ×4 (01:00→18:17)
[2018-04-20] MEDS: diphenhydrAMINE 25 MG CAP 50 MG PO ×2 (01:13→22:55)
[2018-04-20] MEDS: Budesonide 0.5 MG/2 ML UPD VIAL UPD ×2 (06:29→18:56)
[2018-04-20] MEDS: Normal Saline 1,000 ML 1000 ML IV (07:15)
[2018-04-20 07:19] LABS: Abs Immature Grans 0.04 k/cumm (0.0-0.09); Absolute Lymphocyte Count 1.12 k/cumm (1.2-3.4); Absolute Monocyte Count 0.34 k/cumm (0.11-0.7); Absolute Neutrophil Count 9.24 k/cumm (1.2-6.7); HCT 39.7 % (36.0-46.0); HGB 13.1 g/dL (12.0-15.5); Immature Grans % 0.4; Lymphocytes % 10.4; Mean Corpuscular Hemoglobin 30.4 pg (27.0-33.0); Mean Corpuscular Volume 92.1 fL (80-95); Mean Platelet Volume 9.8 fL (8.0-11.0); Monocytes % 3.2; Platelet Count 316 x1000/uL (130-400); RBC 4.31 m/cumm (4.00-5.20); RBC Distribution Width 13.2 % (11.7-14.6); White Blood Cell Count 10.74 k/cumm (4.4-10.8)
[2018-04-20 07:29] LABS: Anion Gap 13.1 mmol/L (3-11); BUN 14 mg/dL (7-18); CO2 22.9 mmol/L (21.0-32.0); CREATININE 0.75 mg/dL (0.55-1.02); Calcium 8.9 mg/dL (8.5-10.1); Chloride 103 mmol/L (98-107); Glucose 119 mg/dL (70-100); Potassium 3.8 mmol/L (3.5-5.1); Sodium 139 mmol/L (136-145)
--- NOTE | 2018-04-20 07:40 | NUR.NOTE ---
Nursing Note:At approximately 0625 pt rang call brito complaining of feeling like her heart was bursting out of her chest. VS taken immediately showed HR 185, sats 95%, BP 110/73. Charge nurse notified who called doctor who ordered EKG stat, which showed SVT. ER doctor to pt room, walked pt through attempt at vagal maneuver which was ultimately successful, with heart rate down to 70's-80's. Pt had been hooked up to Zoll during this episode, ER nurse working with patient and nurse as well. ER doctor advised to still administer previously ordered diltiazem push, which was then administered (see MAR). Administered over 5 minutes. At this time patient advised she was feeling better, had endorsed no chest pain during this episode. ER Dr. Clark advised to administer 1 liter NS wide open which was hung after administration of IV diltiazem. Pt then advised she needed to urinate, she was given a BSC and voided on this then assisted back into bed. She had been placed on telemetry after initial EKG which she remains on at this time. Report given verbally to oncoming nurse.
[2018-04-20 08:00] LABS: Magnesium 2.2 mg/dL (1.8-2.4)
[2018-04-20] MEDS: predniSONE 20 MG TAB 40 MG PO ×2 (08:33→21:18)
[2018-04-20] MEDS: Nicotine 14 MG/24 HR PATCH TD (08:34)
[2018-04-20] MEDS: Normal Saline Flush 10 ML SYR (08:35)
[2018-04-20] MEDS: Pantoprazole 40 MG VIAL IVP (08:35)
[2018-04-20] MEDS: Normal Saline 500 ML 30 ML IV (08:36)
[2018-04-20] MEDS: Enoxaparin 40 MG/0.4 ML SYR SC (08:36)
[2018-04-20] MEDS: LEVOFLOXACIN 750 MG/150 ML BAG 150 MG IVPB (08:36)
--- NOTE | 2018-04-20 09:16 | NUR.NOTE ---
Nursing Note: APPROXIMATELY 0630 TOLD THAT PT'S HR WAS IN 180s. WENT TO ROOM TO SEE THAT PT WAS IN 180'S ON AUTOCUFF READING AND THIS WAS NOT CHANGING. PT RED IN FACE AND STRESSED. IMMEDIATELY WENT TO NURSING STATION AND CALLED NURSING HOSPITAL FELLOW- HR IN 180s SUSTAINED AND AM CALLING MD RIGHT NOW. CALL PUT IN TO MD. MD ORDERED EKG AND CALL BACK WITH RESULTS AND APPLY TELE IF WE HAVE ONE AVAIL. EKG DONE SHOWING HR [address]ION. MD WAS APPRISED OF RESULTS. MD ORDERED ZOLL TO BE APPLIED TO PT IMMEDIATELY AND 10MG IV DILTIAZEM TO BE GIVEN. DR AMARAL WILL CALL ER MD TO SEE IF HE CAN COME UP TO FLOOR. HAD TO GO TO ICU TO GET DILTIAZEM NONE IN MED/SURG PYXIS. WHEN WENT TO BEDSIDE WITH DILTIAZEM THE ER MD DR GABRIEL WAS IN ROOM WITH ED NURSE TRYING VAGAL MANEUVERS. DR GABRIEL REQUESTED TO HOLD OFF ON DILTIAZEM. ZOLL WAS ON PT WELL TELEMETRY UNIT. ALSO, PT'S OWN NURSE Albina MCKEON RN. ER MD LOOKING AT GIVING MEDIM S TO PT WHEN SHE RESPONDED TO THE VAGAL MANUEVERS AND HR CAME DOWN WELL. REPEAT EKG DONE SHOWING SINUS TACHY, NO ST DEPRESSIONS. THIS WAS REPORTED TO DR AMARAL. AFTERWARDS DR GABRIEL ORDERED THE 10MG DILTIAZEM TO BE GIVEN AND A BOLUS OF 1000CC NS BE GIVEN WIDE OPEN. THIS WAS DONE. ONC CL COORDINATOR MORELIA RODRIGUEZ RN APPRISED OF ALL. DR CARY CALLED AFTER NOC SHIFT ENDED AND INQUIRED ABOUT THE PT. TOLD HIM THAT SINCE I HAD TALKED TO DR AMARAL LAST THAT ER DECIDED TO GIVE 10MG DILTIAZEM 10MG AND A 1000CC NS BOLUS. ALSO TOLD DR CARY THAT HR I LAST SAW WAS AROUND 111 TO 126 AND REPEAT EKG SHOWED SINUS TACHY. AND THAT IT WAS THE VAGAL MANEUVERS THAT GOT PT OUT OF 180s. INFORMED Jaime RODRIGUEZ RN DAY COORDINATOR OF MY CONVERSATION WITH DR CARY AND THAT WHEN LAST TALKED TO DR AMARAL THE ER MD HAD SAID HOLD DILTIAZEM AND AFTER VAGALING WORKED THEN DECIDED TO GIVE DILTIAZEM AND DR CARY WAS TOLD THIS.
[2018-04-20] MEDS: Potassium Chloride 20 MEQ TABCR PO (10:23)
--- NOTE | 2018-04-20 10:30 | MERGE_ITS ---
*[facility]* *[facility]* [address] [place] [address] Date of study: 04/20/2018 Transthoracic Echocardiography M-mode, complete 2D, complete spectral Doppler, and color Doppler *STUDY CONCLUSIONS* Summary: 1. Left ventricle: The cavity size was normal. Systolic function was normal. The estimated ejection fraction was 60-65%. Diastolic parameters were normal. There was no evidence of elevated ventricular filling pressure by Doppler parameters. 2. Aortic valve: There was mild regurgitation. 3. Mitral valve: There was mild regurgitation. 4. Right ventricle: The cavity size was normal. Wall thickness was normal. Systolic function was normal. 5. Atrial septum: No defect or patent foramen ovale was identified. 6. Pulmonary arteries: Pulmonary systolic pressure was in the range of 20mm Hg to 30mm Hg. 7. Inferior vena cava: The vessel was patent and normal in size. The respirophasic diameter changes were in the normal range (greater than or equal to 50%), consistent with normal central venous pressure. *PATIENT PRESENTATION* Height: 162.6cm ((64in) ) S/D Pressure: 115 / 71 Weight: 70.8kg ((155.7lb) ) BSA: 1.8m^2 Test start time: 10:38 AM. Test stop time: 11:20 AM. PERFORMING Unknown ORDERING Logan Chester REFERRING Logan Chester PERFORMING [facility] LITHOGRAPH DESIGNER RT Francine VillatoroR)(MANPREET)JENNY *PROCEDURE DATA* Procedure information: The patient was identified by two identifiers. This study was interpreted by [facility]. Pertinent images and digital data are archived for permanent storage and are available for subsequent review. No prior study was available for comparison. Study status: Routine. Transthoracic echocardiography. M-mode, complete 2D, complete spectral Doppler, and color Doppler. A Transthoracic Echocardiogram was performed. Scanning was performed from the parasternal, apical, subcostal, and suprasternal notch acoustic windows. Images were obtained using an [id number] cardiac ultrasound machine. Image quality was good. Study completion: The patient tolerated the procedure well. History: PMH: SVT. *CARDIAC ANATOMY* Left ventricle: The cavity size was normal. Systolic function was normal. The estimated ejection fraction was 60-65%. The tissue Doppler parameters were normal. Diastolic parameters were normal. There was no evidence of elevated ventricular filling pressure by Doppler parameters. Aortic valve: Trileaflet. Doppler: There was no stenosis. There was mild regurgitation. VTI ratio of LVOT to aortic valve: 0.78. Valve area (VTI): 2.7cm^2. Indexed valve area (VTI): 1.5cm^2/m^2. Peak velocity ratio of LVOT to aortic valve: 0.76. Valve area (Vmax): 2.6cm^2. Indexed valve area (Vmax): 1.4cm^2/m^2. Mean velocity ratio of LVOT to aortic valve: 0.75. Valve area (Vmean): 2.6cm^2. Indexed valve area (Vmean): 1.4cm^2/m^2. Mean gradient (S): 4mm Hg. Peak gradient (S): 5.9mm Hg. Aorta: Aortic root: The aortic root was normal in size. Ascending aorta: The ascending aorta was normal in size. Mitral valve: Doppler: There was no evidence for stenosis. There was mild regurgitation. Valve area by pressure half-time: 4.6cm^2. Indexed valve area by pressure half-time: 2.5cm^2/m^2. Peak gradient (D): 2.3mm Hg. Left atrium: The atrium was normal in size. Atrial septum: No defect or patent foramen ovale was identified. Right ventricle: The cavity size was normal. Wall thickness was normal. Systolic function was normal. Pulmonic valve: Doppler: There was no evidence for stenosis. There was mild regurgitation. Peak gradient (S): 2.9mm Hg. Tricuspid valve: Doppler: There was mild regurgitation. Pulmonary artery: Poorly visualized. Pulmonary systolic pressure was in the range of 20mm Hg to 30mm Hg. Right atrium: The atrium was normal in size. Pericardium: There was no pericardial effusion. Systemic veins: Inferior vena cava: Well visualized. The vessel was patent and normal in size. The respirophasic diameter changes were in the normal range (greater than or equal to 50%), consistent with normal central venous pressure. Baseline ECG: Normal sinus rhythm. Measurements Left ventricle Value Reference LV ID, ED, PLAX 4.6 cm 3.5 - 6.0 LV ID, ES, PLAX 3.4 cm 2.1 - 4.0 LV PW thickness, ED, PLAX 0.7 cm LV end-diastolic volume, 1-p A2C 51 ml LV ejection fraction, 1-p A2C 54 % LV end-diastolic volume, 1-p A4C 54 ml LV ejection fraction, 1-p A4C 63 % LV e', lateral 0.152 m/sec LV E/e', lateral 5 LV e', medial 0.134 m/sec LV E/e', medial 6 LV e', average 0.143 m/sec LV E/e', average 5 Ventricular septum Value Reference IVS thickness, ED, PLAX 0.8 cm LVOT Value Reference LVOT ID, A-P 2.1 cm LVOT area 3.4 cm^2 LVOT peak velocity, S 0.92 m/sec LVOT mean velocity, S 0.72 m/sec LVOT VTI, S 19.5 cm LVOT peak gradient, S 3.4 mm Hg LVOT mean gradient, S 2.3 mm Hg Stroke volume (SV), LVOT DP 67 ml Stroke index (SV/bsa), LVOT DP 37 ml/m^2 Aortic valve Value Reference Aortic valve peak velocity, S 1.2 m/sec Aortic valve mean velocity, S 0.97 m/sec Aortic valve VTI, S 25.0 cm Aortic mean gradient, S 4 mm Hg Aortic peak gradient, S 5.9 mm Hg VTI ratio, LVOT/AV 0.78 Aortic valve area, VTI 2.7 cm^2 Velocity ratio, peak, LVOT/AV 0.76 Aortic valve area, peak velocity 2.6 cm^2 Velocity ratio, mean, LVOT/AV 0.75 Aortic valve area, mean velocity 2.6 cm^2 Aortic valve area/bsa, mean velocity 1.4 cm^2/m^2 Aorta Value Reference Aortic root ID, ED 2.8 cm Ascending aorta ID, A-P, S 3.0 cm Left atrium Value Reference LA ID, A-P, ES 2.4 cm LA ID/bsa, A-P 1.3 cm/m^2 <=2.2 LA area, ES, A4C 14.8 cm^2 8.8 - 23.4 LA area, ES, A2C 11 cm^2 LA volume/bsa, ES, 1-p A4C 19 ml/m^2 LA volume, ES, 2-p 29 ml LA volume/bsa, ES, 2-p 16 ml/m^2 LA/aortic root ratio 0.84 Mitral valve Value Reference Mitral E-wave peak velocity 0.76 m/sec Mitral A-wave peak velocity 0.54 m/sec Mitral deceleration time 166 ms 150 - 230 Mitral pressure half-time 48 ms Mitral peak gradient, D 2.3 mm Hg Mitral E/A ratio, peak 1.41 Mitral valve area, PHT, DP 4.6 cm^2 Pulmonary veins Value Reference Pulmonary vein peak velocity, S 0.71 m/sec Pulmonary vein peak velocity, D 0.42 m/sec Pulmonary vein velocity ratio, peak, 1.69 S/D Tricuspid valve Value Reference Tricuspid regurg peak velocity 2.3 m/sec Tricuspid peak RV-RA gradient 21.6 mm Hg Right atrium Value Reference RA area, ES, A4C 11.9 cm^2 8.3 - 19.5 Pulmonic valve Value Reference Pulmonic peak gradient, S 2.9 mm Hg Legend: (L) and (H) martha values outside specified reference range. I have personally reviewed the images and have reviewed and edited the reported findings. Electronically signed by Jalil Kaba MD 04/20/2018 12:03
--- NOTE | 2018-04-20 13:06 | W.PM.PROGNOT ---
Date of Service Date of service: 04/20/18 Time of Service: 13:06 Assessment and Plan (1) Reactive airway disease: Current visit: Yes Status: Acute Continue Levaquin, duonebs, inhaled budesonide. RT following. Jolene is still on oxygen, however would like this weaned down. It sounds like there is some confusion regarding hx of childhood asthma. Would benefit from outpatient PFT's once she is recovered from this acute respiratory illness. Blood cultures remain negative. Normal ECHO today. (2) Tobacco use: Current visit: Yes Status: Chronic Initiate NRT now, and encourage cessation in the future. (3) DVT prophylaxis: Current visit: Yes Status: Acute SC Lovenox (4) SVT (supraventricular tachycardia): Current visit: Yes Status: Chronic hx SVT that occurs rarely and is brief in duration. This may be exacerbated by illness and steroid use. Could continue to treat with CCB during illness. May benefit from a ZioPatch on discharge to assess SVT further. The decision would be made at that point to continue CCB indefinitely or use a pill in the pocket approach. ECHO with normal LVEF, no significant valvular or structural heart disease. Subjective Patient reports: no new complaints Interval history since last seen: Jolene is a pleasant 32 yo woman with tobacco abuse, hx SVT who is currently being treated for presumed asthma exacerbation. Jolene states she has never had asthma or wheezing as a child and is not sure where this dx is coming from. She and her mother first heard of this in the ER and tried telling the ER doc that she never wheezed as a child. First started showing signs of illness the 1st of this month, however kept brushing it off. Had a persistent cough and chest congestion but continued to smoke and figured her worsening sx were related to continued tobacco abuse. Symptoms got so severe that she finally came to the ER with an SpO2 of 40% and required Bipap. In terms of her SVT she has had this since adolescence. Symptoms only occur twice a year and typically last 5 minutes before resolving without intervention. Feels her heart pounding with associated dizziness, otherwise no associated s/sx. Longest episode lasted 2 hours, however this is not the norm. Has never done anything to treat it and is not overly worried. Exam Narrative Exam Narrative: General: Patient appears comfortable sitting up in bed, A&OX3, NAD Neck: Supple CV: Regular rate and rhythm, S1S2, No rubs, murmurs, or gallops. Pulmonary: Bibasilar crackles and rhonchi Abdomen: + Bowel Sounds, soft, nontender, nondistended Vascular: No lower extremity edema Psych: Normal mood and affect. Objective Objective Clinical Data: Abnormal lab results 04/20/18 04/20/18 Range/Units 06:30 06:30 Absolute Neutrophils 9.24 H (1.2-6.7) k/cumm Absolute Lymphocytes 1.12 L (1.2-3.4) k/cumm Anion Gap 13.1 H (3-11) mmol/L Glucose 119 H (70-100) mg/dL Vital Signs Temperature 37.3 C 04/20/18 12:30 Temperature Source Tympanic 04/20/18 12:30 Pulse 95 H 04/20/18 12:30 Pulse Rhythm Regular 04/20/18 04:00 Pulse 93 H 04/19/18 16:01 Respiratory Rate 17 04/20/18 12:30 Respiratory Effort Accessory Muscle Use 04/20/18 07:46 Respiratory Depth Normal 04/20/18 04:00 Respiratory Pattern Normal 04/20/18 04:00 Blood Pressure 119/85 04/20/18 12:30 Blood Pressure Mean 82 04/19/18 16:01 Blood Pressure Position Supine 04/19/18 15:45 Pulse Oximetry 95 04/20/18 12:30 Oxygen Delivery Method Nasal Cannula 04/20/18 12:30 Oxygen Flow Rate 2 04/20/18 12:30 Fraction of Inspired Oxygen (FIO2) 60 04/19/18 07:02 Pain Level 0 04/20/18 12:30 Comment 04/20/18 07:52 Intake & Output 04/19/18 04/20/18 04/20/18 23:59 11:59 23:59 Intake Total 1150 / 1150 1953 / 1953 240 / 240 Output Total 2350 / 2350 850 / 850 Balance -1200 / -1200 1103 / 1103 240 / 240 Intake: IV 1150 / 1150 1163 / 1163 Oral 790 / 790 240 / 240 Output: Urine 2350 / 2350 850 / 850 Other: Urine Color Yellow Yellow Urine Appearance Clear Clear Urine Odor None None Comment Voids x3 on the commode. Void x1 in the toilet. Voiding Methods Toilet Toilet Laboratory Results WBC 10.74 k/cumm (4.4-10.8) 04/20/18 06:30 RBC 4.31 m/cumm (4.00-5.20) 04/20/18 06:30 Hgb 13.1 g/dL (12.0-15.5) 04/20/18 06:30 Hct 39.7 % (36.0-46.0) 04/20/18 06:30 MCV 92.1 fL (80-95) 04/20/18 06:30 MCH 30.4 pg (27.0-33.0) 04/20/18 06:30 MCHC 33.0 g/dL (32.0-36.0) 04/20/18 06:30 RDW 13.2 % (11.7-14.6) 04/20/18 06:30 Plt Count 316 x1000/uL (130-400) 04/20/18 06:30 MPV 9.8 fL (8.0-11.0) 04/20/18 06:30 Immature Gran % 0.4 04/20/18 06:30 Neutrophils % 86.0 04/20/18 06:30 Lymphocytes % 10.4 04/20/18 06:30 Monocytes % 3.2 04/20/18 06:30 Eosinophils % 0.0 04/20/18 06:30 Basophils % 0.0 04/20/18 06:30 Absolute Neutrophils 9.24 k/cumm (1.2-6.7) H 04/20/18 06:30 Absolute Lymphocytes 1.12 k/cumm (1.2-3.4) L 04/20/18 06:30 Absolute Monocytes 0.34 k/cumm (0.11-0.7) 04/20/18 06:30 Absolute Eosinophils 0.00 k/cumm (0.0-0.7) 04/20/18 06:30 Absolute Basophils 0.00 k/cumm (0.0-0.2) 04/20/18 06:30 D-Dimer 482 ng/mlFEU (<500) 04/17/18 17:20 Sample Site Left radial 04/17/18 17:39 pCO2 34 mmHg (34-47) 04/17/18 17:39 pO2 127 mmHg (83-108) H 04/17/18 17:39 O2 Saturation 99 % (94-98) H 04/17/18 17:39 ABG pH 7.39 (7.35-7.45) 04/17/18 17:39 ABG HCO3 21 mmol/L (22-28) L 04/17/18 17:39 ABG Total CO2 18 mmol/L (22-29) L 04/17/18 17:39 ABG Base Excess mmol/L (-3-3) 04/17/18 17:39 FiO2 70 % 04/17/18 17:39 Sodium 139 mmol/L (136-145) 04/20/18 06:30 Potassium 3.8 mmol/L (3.5-5.1) 04/20/18 06:30 Chloride 103 mmol/L (98-107) 04/20/18 06:30 Carbon Dioxide 22.9 mmol/L (21.0-32.0) 04/20/18 06:30 Anion Gap 13.1 mmol/L (3-11) H 04/20/18 06:30 BUN 14 mg/dL (7-18) 04/20/18 06:30 Creatinine 0.75 mg/dL (0.55-1.02) 04/20/18 06:30 Estimated GFR/1.73 m2 >= 60.00 (mL/min/1.73m2) 04/20/18 06:30 Glucose 119 mg/dL (70-100) H 04/20/18 06:30 Lactate 1.2 mmol/L (0.6-1.4) 04/18/18 08:22 Calcium 8.9 mg/dL (8.5-10.1) 04/20/18 06:30 Magnesium 2.2 mg/dL (1.8-2.4) 04/20/18 06:30 Total Bilirubin 0.5 mg/dL (0.2-1.0) 04/17/18 17:20 AST 17 U/L (15-37) 04/17/18 17:20 ALT 34 U/L (12-78) 04/17/18 17:20 Alkaline Phosphatase 108 U/L (46-116) 04/17/18 17:20 Troponin I < 0.02 ng/mL (0.00-0.06) 04/17/18 17:20 Total Protein 8.4 g/dL (6.4-8.2) H 04/17/18 17:20 Albumin 3.9 g/dL (3.4-5.0) 04/17/18 17:20
--- NOTE | 2018-04-20 14:25 | PDOC.CMPRO ---
- If Service Date Differs Date of service: 04/20/18 Time of Service: 14:25 Care Management Progress Note S/O: Jolene is sitting up in bed this morning, she is pleasant and open to discussion. Jolene is hopeful to be able to return home soon, as she has a three y/o at home. Jolene continues on telemetry at this time, and is scheduled for an Echo today. No change in DC plan at this time. A: 32 year old female admitted with asthma exacerbation. P: Jolene will discharge home when medically ready per MD. Anticipate patient will discharge with no services and follow up with her PCP. Jolene will transport via private vehicle with her mother. CM will continue to offer support to patient and care team regarding discharge planning and disposition.
[2018-04-20] MEDS: Normal Saline Flush 10 ML SYR IVP (21:18)
[2018-04-20] MEDS: LORazepam 0.5 MG TAB PO (22:55)
[2018-04-21] VITALS (9 sets, daily range): BP systolic 100–119; BP diastolic 65–83; PULSE 67–108; RESP 17–20; TEMP 36.4–37.2; O2SAT 92–95
[2018-04-21] MEDS: Albuterol/Ipratropium 3 ML UPD VIAL UPD ×2 (06:36→13:04)
[2018-04-21] MEDS: Budesonide 0.5 MG/2 ML UPD VIAL UPD (06:36)
[2018-04-21 07:25] LABS: Abs Immature Grans 0.09 k/cumm (0.0-0.09); Absolute Lymphocyte Count 1.32 k/cumm (1.2-3.4); Absolute Monocyte Count 0.35 k/cumm (0.11-0.7); HCT 43.5 % (36.0-46.0); HGB 14.4 g/dL (12.0-15.5); Immature Grans % 0.8; Lymphocytes % 11.8; Mean Corp. HGB Concentration 33.1 g/dL (32.0-36.0); Mean Corpuscular Hemoglobin 30.2 pg (27.0-33.0); Mean Corpuscular Volume 91.2 fL (80-95); Mean Platelet Volume 9.4 fL (8.0-11.0); Monocytes % 3.1; Neutrophils % 84.3; Platelet Count 315 x1000/uL (130-400); RBC 4.77 m/cumm (4.00-5.20); RBC Distribution Width 13.1 % (11.7-14.6); White Blood Cell Count 11.17 k/cumm (4.4-10.8)
[2018-04-21 07:35] LABS: Anion Gap 12.2 mmol/L (3-11); BUN 18 mg/dL (7-18); CO2 21.8 mmol/L (21.0-32.0); CREATININE 0.83 mg/dL (0.55-1.02); Chloride 104 mmol/L (98-107); Glucose 124 mg/dL (70-100); Potassium 4.2 mmol/L (3.5-5.1); Sodium 138 mmol/L (136-145)
[2018-04-21 07:41] LABS: Absolute Neutrophil Count 9.42 k/cumm (1.2-6.7)
[2018-04-21] MEDS: predniSONE 20 MG TAB 40 MG PO (08:41)
[2018-04-21] MEDS: Nicotine 14 MG/24 HR PATCH TD (08:42)
[2018-04-21] MEDS: Enoxaparin 40 MG/0.4 ML SYR SC (08:43)
[2018-04-21] MEDS: Normal Saline Flush 10 ML SYR IVP ×2 (08:44→09:07)
[2018-04-21] MEDS: Pantoprazole 40 MG VIAL IVP (08:44)
[2018-04-21] MEDS: LEVOFLOXACIN 750 MG/150 ML BAG 150 MG IVPB (09:07)
[2018-04-21] MEDS: Polyethylene Glycol 3350 17 GM PACKET PO (11:08)
[2018-04-21] MEDS: Bisacodyl 5 MG TABEC 10 MG PO (11:08)
--- NOTE | 2018-04-21 13:49 | PDOC.CMPRO ---
- If Service Date Differs Date of service: 04/21/18 Time of Service: 13:49 Care Management Progress Note S/O: Jolene is doing well this morning, she continues to require 2L of oxygen this morning. She also continues on IV antibiotics at this time. Jolene's family brought in her daughter to see her today which Jolene was happy about. No change in plan at this time. A: 32 year old female admitted with asthma exacerbation. P: Jolene will discharge home when medically ready per MD. Anticipate patient will discharge with no services and follow up with her PCP. Jolene will transport via private vehicle with her mother. CM will continue to offer support to patient and care team regarding discharge planning and disposition.
--- NOTE | 2018-04-21 15:14 | W.PM.DS.N ---
Date of service: 04/21/18 Time of Service: 15:15 DS: Diagnosis Discharge Diagnosis (1) Reactive airway disease: Status: Acute (2) Tobacco use: Status: Chronic (3) SVT (supraventricular tachycardia): Status: Chronic Discharge Plan Disposition Patient Disposition: HOME Condition: Improving Discharge Details Reason For Visit: ASTHMA Admit Date/Time: 04/17/18 18:51 Admit Provider: Christiano Syed Attending Provider: Christiano Syed Primary Care Provider: Jhoana Pedraza V Hospital Course Hospital Course: Jolene Carlin is a very pleasant 32 year old woman with a past medical history significant for possible asthma (although no formal diagnosis) and current everyday tobacco use admitted from [facility] on 04/17 with dyspnea. She reported an approximate 2 week history of coughing with increasing Dysnea. Work-up revealed evidence of a mild leukocytosis, elevated lactate, noted hypoxia and tachypnea, as well as potential minimal bilateral interstitial disease on CXR. Her respiratory distress initially required treatment with BiPAP. She had significant wheezing, hypoxia, and dyspnea in setting of likely bacterial Tracheobronchitis and potential underlying obstructive lung disease (possible Asthma, History of tobacco use), with potential pneumonia based on CXR read and physical exam. Rapid flu was negative for influenza A & B. Blood Cultures yielded no growth at 72 hours. Sputum cultures ordered, but unable to obtain. She was initially on IV steroids, duonebs and IV Fluoroquinolone therapy. Her respiratory status improved. She transitioned to oral steroids and will be tapered off prednisone after her discharge. She will complete the course of Levaquin. She is encouraged to quit smoking. She has been using a nicotine patch, this will be continued after discharge home. She was monitored on telemetry and noted to be tachycardic. She has a history of SVT since her adolescence. She was started on Cardizem. Cardizem will be continued as an outpatient as she continues to be mildly tachycardic. She will be discharged with a ZioPatch in place. Her PCP will ultimately decide if she will need to continue the CCB at that point. She did have an echocardiogram while she was here which showed normal LVEF, no significant valvular or structural heart disease. Given that she does not endorse a history of a formal diagnosis of asthma and she is a smoker, PFT's may be helpful once she has recovered from this acute illness. She will follow up with her PCP as scheduled. She is encouraged to quit smoking. She was provided with resources on smoking cessation. Home Meds and New Rx's Prescriptions: New acetaminophen [Tylenol] 325 mg Tablet 650 mg PO Q4H PRN PRNQty: 0 RF: 0 nicotine 14 mg/24 hr Patch 24 Hour 14 mg Transdermal DAILY Qty: 14 RF: 0 diltiazem HCl [Cardizem] 30 mg Tablet 30 mg PO TID Qty: 90 RF: 0 prednisone 10 mg tablet 10 mg PO DAILY Qty: 30 RF: 0 albuterol sulfate 90 mcg/actuation HFA aerosol inhaler 2 puff IH Q6H PRN (Reason: shortness of breath or wheezing) Qty: 8.5 RF: 0 levofloxacin [Levaquin] 750 mg tablet 750 mg PO DAILY Qty: 3 RF: 0 Continue ibuprofen 800 MG tablet 800 mg PO Q6H PRN PRN (Reason: Pain) Qty: 20 RF: 0 Discharge Instructions Instructions: Supraventricular Tachycardia (DC), Asthma (DC), Acute Bronchitis (GEN), Community Acquired Pneumonia (DC) Additional Instructions: Take Levaquin (antibiotics) for 3 more days. Taper prednisone as follows: take 4 tabs tonight, then 6 tabs in the morning x2 days, then 4 tabs x2 days then 2 tabs x2 days then 1 tab x2 days then stop. Albuterol inhaler for wheezing. Follow up with your PCP. Follow the directions on [facility]. Consider pulmonary function testing once you have recovered from this illness. Take care! Activity:: Activity as Tolerated Equipment/Supplies:: No Equipment Needed Diet:: As Tolerated Discharge Orders Discharge Orders: Discharge Order (Routine); Ordered 04/21/18 Ordered By: Juanis Jones Exam Narrative Exam Narrative: General: appears comfortable walking around in halls and in room without SOB, A&OX3, in no acute distress. Neck: Supple, no JVD CV: Regular rate and rhythm, S1S2, No rubs, murmurs, or gallops. Pulmonary: respirations even and unlabored. Mildly diminished lung sounds with minimal fine rales at left base. No wheezing or rhonchi. Abdomen: + Bowel Sounds throughout, soft, nontender, nondistended Extremities: No clubbing, cyanosis or edema Psych: Normal mood and affect. DS: Data Vitals/I&O Vitals and I&O: Vital Signs Temperature 36.4 C L 04/21/18 12:34 Temperature Source Tympanic 04/21/18 12:06 Pulse 108 H 04/21/18 12:34 Pulse Rhythm Regular 04/21/18 08:25 Pulse 93 H 04/19/18 16:01 Respiratory Rate 17 04/21/18 12:34 Respiratory Effort Non-Labored 04/21/18 08:25 Respiratory Depth Normal 04/21/18 08:25 Respiratory Pattern Tachypnea 04/21/18 08:25 Blood Pressure 100/65 04/21/18 12:34 Blood Pressure Mean 82 04/19/18 16:01 Blood Pressure Position Supine 04/19/18 15:45 Pulse Oximetry 93 L 04/21/18 12:34 Oxygen Delivery Method Room Air 04/21/18 12:34 Oxygen Flow Rate 0 04/21/18 12:34 Fraction of Inspired Oxygen (FIO2) 60 04/19/18 07:02 Pain Level 0 04/21/18 12:06 Comment 04/20/18 19:30 Intake & Output 04/20/18 04/21/18 04/21/18 23:59 11:59 23:59 Intake Total 480 / 480 1150 / 1150 250 / 250 Output Total 400 / 400 Balance 80 / 80 1150 / 1150 250 / 250 Weight 71.4 kg Intake: IV 150 / 150 Oral 480 / 480 1000 / 1000 250 / 250 Output: Urine 400 / 400 Other: Urine Color Yellow Urine Appearance Clear Urine Odor None Comment Void x1 in the toilet. Independent with voiding in room, pt slept through night. Voiding Methods Toilet Completed studies during hospitalization [Text1]: 04/17/18: PORTABLE AP CHEST: The heart is not enlarged. The lungs are predominantly clear with question of some minimal septal lines in the left lung base and possibly right lung base, probable epicardial fat pad noted on the left as well. CONCLUSION: Question minimal pulmonary interstitial infiltrates, PA and lateral chest suggested for further evaluation. 04/20/18: Summary: 1. Left ventricle: The cavity size was normal. Systolic function was normal. The estimated ejection fraction was 60-65%. Diastolic parameters were normal. There was no evidence of elevated ventricular filling pressure by Doppler parameters. 2. Aortic valve: There was mild regurgitation. 3. Mitral valve: There was mild regurgitation. 4. Right ventricle: The cavity size was normal. Wall thickness was normal. Systolic function was normal. 5. Atrial septum: No defect or patent foramen ovale was identified. 6. Pulmonary arteries: Pulmonary systolic pressure was in the range of 20mm Hg to 30mm Hg. 7. Inferior vena cava: The vessel was patent and normal in size. The respirophasic diameter changes were in the normal range (greater than or equal to 50%), consistent with normal central venous pressure Labs on day of discharge: Labs from last 24 hours 04/21/18 04/21/18 07:08 07:08 WBC 11.17 H RBC 4.77 Hgb 14.4 Hct 43.5 MCV 91.2 MCH 30.2 MCHC 33.1 RDW 13.1 Plt Count 315 MPV 9.4 Immature Gran % 0.8 Neutrophils % 84.3 Lymphocytes % 11.8 Monocytes % 3.1 Eosinophils % 0.0 Basophils % 0.0 Absolute Neutrophils 9.42 H Absolute Lymphocytes 1.32 Absolute Monocytes 0.35 Absolute Eosinophils 0.00 Absolute Basophils 0.00 Sodium 138 Potassium 4.2 Chloride 104 Carbon Dioxide 21.8 Anion Gap 12.2 H BUN 18 Creatinine 0.83 Estimated GFR/1.73 m2 >= 60.00 Glucose 124 H Calcium 9.0 Preliminary micro results at discharge 04/17/18 18:45 Blood Culture - Preliminary Blood NO GROWTH 72 HOURS 04/17/18 18:05 Blood Culture - Preliminary Blood NO GROWTH 72 HOURS FORMERLY [facility], 1928–1983 Medical History Asthma (Chronic) Social History Smoking/Tobacco Use Status: Current every day
== END 2018-04-21 17:07 | disposition home or self-care (01) | DRG 202 ==
LOC: ER 20:24 → MS 04-20 10:01 → ICU 05-07 12:02
PROVIDERS: Internal Medicine; Admitting Provider General Practice; Emergency Provider Physician Assistant; PCP Family Medicine; Visit Provider Family Medicine
DX: J45.909 Unspecified asthma, uncomplicated (principal); J18.9 Pneumonia, unspecified organism; I47.1 Supraventricular tachycardia; R09.02 Hypoxemia; F17.200 Nicotine dependence, unspecified, uncomplicated; I08.0 Rheumatic disorders of both mitral and aortic valves
CPT/HCPCS: 36415; 80048; 80053; 81025; 82805; 87040; 87449; 93005; 93225; 94640; 96361; 96365; 96366; 96375; 99222; 99226; 99232; 99239; 99285; J1650; 36600; 71045; 83605; 83735; 84132; 84484; 85025; 85379; 93010; 93306; 94660; 99233; J1956; J2270; J2930; J7512; J7613; J7620; J7626

== ENCOUNTER 2018-04-29 22:26 | Emergency (ER) | payer MEDICAID, SELFPAY ==
[2018-04-29 22:31] VITALS: BP 121/65; PULSE 102; TEMP 36.6; O2SAT 95
--- NOTE | 2018-04-29 22:33 | DI.RAD_ITS ---
SYMPTOM/DIAGNOSIS: S/P FALL, PAIN, ? FX RIGHT ANKLE: Three views were obtained. On the mortise view, there is a lucency projected through the distal tibial articular surface of the medial malleolus. Suspect acute fracture. Additional evaluation with CT or follow up films recommended. No other fracture is seen.
--- NOTE | 2018-04-29 22:36 | W.ED.GENAD ---
Discharge Plan Disposition Patient Disposition: HOME Condition: Stable Discharge Details Chief Complaint: Orthopedic Clinical Impression: Ankle fracture, right Primary Care Provider: Jhoana Pedraza V ED Provider: Sara Miller Home Meds and New Rx's Prescriptions: Continue ibuprofen 800 MG tablet 800 mg PO Q6H PRN PRN (Reason: Pain) Qty: 20 RF: 0 acetaminophen [Tylenol] 325 mg Tablet 650 mg PO Q4H PRN PRNQty: 0 RF: 0 nicotine 14 mg/24 hr Patch 24 Hour 14 mg Transdermal DAILY Qty: 14 RF: 0 diltiazem HCl [Cardizem] 30 mg Tablet 30 mg PO TID Qty: 90 RF: 0 prednisone 10 mg tablet 10 mg PO DAILY Qty: 30 RF: 0 albuterol sulfate 90 mcg/actuation HFA aerosol inhaler 2 puff IH Q6H PRN (Reason: shortness of breath or wheezing) Qty: 8.5 RF: 0 levofloxacin [Levaquin] 750 mg tablet 750 mg PO DAILY Qty: 3 RF: 0 Discharge Instructions Instructions: Ankle Fracture (ED) Additional Instructions: Rest, ice and elevate your right leg as much as possible. Alternate tylenol and motrin as needed and directed for pain. You may call the emergency department at [phone] tomorrow to determine the reading of your xray by the in house radiologist. Call orthopedics tomorrow to schedule a follow up appointment for re-evaluation. Return immediately to the emergency department with any worsening or new concerning symptoms. Referrals: Sebastián Lewis MD [ [facility] STAFF PHYSICIAN] - Discharge Data Discharge Date/Time-TO BE ENTERED AT DEPARTURE: 04/29/18 23:34 Discharge Physician: Sara Miller Medical Decision Making 32yo F w/ R ankle pain after jumped off 4 foot wall 2 days ago. Tenderness to palpation R medial ankle. No deformity. NV intact. No pain in R knee/hip/back. Pt denies chance of . Pt has IUD since 2014. Will give a dose of motrin and R ankle xray. 1120 -- Ankle xray notes a lucent line from distal tibial metaphysis which may be artifact but she has some tenderness in this area. Pt was offered a CT for further evaluation but she declines this at this time. Will place a posterior splint and give crutches. D/w pt that in house radiologist will read xray tomorrow and she can call the ED to determine their reading and place on ortho follow up list for evaluation of xray and pt follow up. Pt instructed on the importance of rest, ice, elevation, nsaids, tylenol. Instructed to return to the ER with any concerns. Imaging Data Radiologic Study: Imaging: X-Ray Radiologist's impression: EXAM: XR Right Ankle Complete, 3 or more Views EXAM DATE/TIME: 04/29/2018 10:36 PM CLINICAL HISTORY: 32 years old, female; Pain; Ankle; Right; Patient HX: S/P fall; Per PT: Jumped off wall; Additional info: R/O acute fracture TECHNIQUE: XR Right ankle 3 or more views. COMPARISON: No relevant prior studies available. FINDINGS: Bones/joints: On a single view there is a lucent line through the distal tibial metaphysis. Most likely this is an artifact. Soft tissues: Unremarkable. IMPRESSION: No convincing evidence of fracture. Suggest CT or MRI scan if symptoms persist. HPI General Mode of arrival: ambulatory. Date/Time Provider Initiated Documentation: 04/29/18 22:29. Limitations to Documentation: no limitations. Information obtained by: patient. HPI Narrative: Pt is a 32yo F who presents to the ED w/ a c/o R ankle pain x 2 days after jumped down 4 feet from a wall onto on R ankle. She denies any back, hip, knee or lower leg pain. She is only c/o pain in R medial ankle. Pt has been taking motrin for pain but not today. Related Data Home Medications Medication Instructions Recorded Confirmed ibuprofen 800 mg PO Q6H PRN PRN #20 tab 08/29/15 04/17/18 acetaminophen [Tylenol] 650 mg PO Q4H PRN PRN #0 tab 04/21/18 albuterol sulfate 2 puff IH Q6H PRN #8.5 gm 04/21/18 diltiazem HCl [Cardizem] 30 mg PO TID #90 tab 04/21/18 levofloxacin [Levaquin] 750 mg PO DAILY #3 tab 04/21/18 nicotine 14 mg TRANSDERMAL DAILY #14 ea 04/21/18 prednisone 10 mg PO DAILY #30 tab 04/21/18 Previous Rx's Medication Instructions Recorded ibuprofen 800 mg PO Q6H PRN PRN #20 tab 08/29/15 acetaminophen [Tylenol] 650 mg PO Q4H PRN PRN #0 tab 04/21/18 albuterol sulfate 2 puff IH Q6H PRN #8.5 gm 04/21/18 diltiazem HCl [Cardizem] 30 mg PO TID #90 tab 04/21/18 levofloxacin [Levaquin] 750 mg PO DAILY #3 tab 04/21/18 nicotine 14 mg TRANSDERMAL DAILY #14 ea 04/21/18 prednisone 10 mg PO DAILY #30 tab 04/21/18 Allergies Allergy/AdvReac Type Severity Reaction Status Date / Time No Known Allergies Allergy Unverified 04/17/18 15:53 General Stated Complaint: Orthopedic SREEDHAR: 4 Review of Systems Review of Systems All systems reviewed & are unremarkable except as noted in HPI and below PFSH Medical History Asthma (Chronic) Reactive airway disease (Acute) SVT (supraventricular tachycardia) (Chronic) Social History Smoking/Tobacco Use Status: Current every day Exam Const General: cooperative, healthy appearing and no acute distress HENMT Head: normal to inspection Mouth: oral mucosae normal Eyes General: appearance normal, both eyes and all related structures Neck Neck: normal visual inspection Resp Effort & Inspection: normal respiratory effort and able to speak in complete sentences Cardio Rate: regular rate Skin General skin exam: no rashes or lesions noted Neuro General: alert, awake and oriented x3 Motor: muscle tone normal throughout Extrem Right lower extremity: lower leg Details: other (no tenderness overlying proximal fibula ), ankle (tenderness to palpation on medial aspect ) Details: no edema and abnormal ROM Details: pain with active ROM; no unusual warmth, no abrasions, no lacerations and no ecchymosis and foot Details: normal capillary refill, normal to inspection and vascular exam Details: dorsalis pedis pulse present and posterior tibial pulse present; no tenderness Psych Appearance: grossly normal Affect: normal affect Course Vital Signs Temperature 97.9 F 04/29/18 22:31 Pulse 102 H 04/29/18 22:31 Blood Pressure 121/65 04/29/18 22:31 Pulse Oximetry 95 04/29/18 22:31 Temperature 97.9 F 04/29/18 22:31 Temperature Source Skin 04/29/18 22:31 Pulse 102 H 04/29/18 22:31 Blood Pressure 121/65 04/29/18 22:31 Blood Pressure Position Sitting 04/29/18 22:31 Pulse Oximetry 95 04/29/18 22:31 Pain Level 5 04/29/18 22:31 Procedures Orthopedic Splinting/Casting Injury #1: Side: right Lower Extremity Injury Location: ankle Lower Extremity Immobilizer: posterior splint Other Orthopedic Equipment: crutches
--- NOTE | 2018-04-29 22:46 | ED.GENADUL_ITS ---
Discharge Plan Disposition Patient Disposition: HOME Condition: Stable Discharge Details Chief Complaint: Orthopedic Clinical Impression: Ankle fracture, right Primary Care Provider: Jhoana Pedraza V ED Provider: Sara Miller Home Meds and New Rx's Prescriptions: Continue ibuprofen 800 MG tablet 800 mg PO Q6H PRN PRN (Reason: Pain) Qty: 20 RF: 0 acetaminophen [Tylenol] 325 mg Tablet 650 mg PO Q4H PRN PRNQty: 0 RF: 0 nicotine 14 mg/24 hr Patch 24 Hour 14 mg Transdermal DAILY Qty: 14 RF: 0 diltiazem HCl [Cardizem] 30 mg Tablet 30 mg PO TID Qty: 90 RF: 0 prednisone 10 mg tablet 10 mg PO DAILY Qty: 30 RF: 0 albuterol sulfate 90 mcg/actuation HFA aerosol inhaler 2 puff IH Q6H PRN (Reason: shortness of breath or wheezing) Qty: 8.5 RF: 0 levofloxacin [Levaquin] 750 mg tablet 750 mg PO DAILY Qty: 3 RF: 0 Discharge Instructions Instructions: Ankle Fracture (ED) Additional Instructions: Rest, ice and elevate your right leg as much as possible. Alternate tylenol and motrin as needed and directed for pain. You may call the emergency department at [phone] tomorrow to determine the reading of your xray by the in house radiologist. Call orthopedics tomorrow to schedule a follow up appointment for re- evaluation. Return immediately to the emergency department with any worsening or new concerning symptoms. Referrals: Sebastián Lewis MD [ [facility] STAFF PHYSICIAN] - Discharge Data Discharge Date/Time-TO BE ENTERED AT DEPARTURE: 04/29/18 23:34 Discharge Physician: Sara Milelr Medical Decision Making 32yo F w/ R ankle pain after jumped off 4 foot wall 2 days ago. Tenderness to palpation R medial ankle. No deformity. NV intact. No pain in R knee/hip/back. Pt denies chance of . Pt has IUD since 2014. Will give a dose of motrin and R ankle xray. 1120 -- Ankle xray notes a lucent line from distal tibial metaphysis which may be artifact but she has some tenderness in this area. Pt was offered a CT for further evaluation but she declines this at this time. Will place a posterior splint and give crutches. D/w pt that in house radiologist will read xray tomorrow and she can call the ED to determine their reading and place on ortho follow up list for evaluation of xray and pt follow up. Pt instructed on the importance of rest, ice, elevation, nsaids, tylenol. Instructed to return to the ER with any concerns. Imaging Data Radiologic Study: Imaging: X-Ray Radiologist's impression: EXAM: XR Right Ankle Complete, 3 or more Views EXAM DATE/TIME: 04/29/2018 10:36 PM CLINICAL HISTORY: 32 years old, female; Pain; Ankle; Right; Patient HX: S/P fall; Per PT: Jumped off wall; Additional info: R/O acute fracture TECHNIQUE: XR Right ankle 3 or more views. COMPARISON: No relevant prior studies available. FINDINGS: Bones/joints: On a single view there is a lucent line through the distal tibial metaphysis. Most likely this is an artifact. Soft tissues: Unremarkable. IMPRESSION: No convincing evidence of fracture. Suggest CT or MRI scan if symptoms persist. HPI General Mode of arrival: ambulatory . Date/Time Provider Initiated Documentation: 04/29/18 22:29 . Limitations to Documentation: no limitations . Information obtained by: patient . HPI Narrative: Pt is a 32yo F who presents to the ED w/ a c/o R ankle pain x 2 days after jumped down 4 feet from a wall onto on R ankle. She denies any back, hip, knee or lower leg pain. She is only c/o pain in R medial ankle. Pt has been taking motrin for pain but not today. Related Data Home Medications Medication Instructions Recorded Confirmed ibuprofen 800 mg PO Q6H PRN PRN #20 tab 08/29/15 04/17/18 acetaminophen [Tylenol] 650 mg PO Q4H PRN PRN #0 tab 04/21/18 albuterol sulfate 2 puff IH Q6H PRN #8.5 gm 04/21/18 diltiazem HCl [Cardizem] 30 mg PO TID #90 tab 04/21/18 levofloxacin [Levaquin] 750 mg PO DAILY #3 tab 04/21/18 nicotine 14 mg TRANSDERMAL DAILY #14 ea 04/21/18 prednisone 10 mg PO DAILY #30 tab 04/21/18 Previous Rx's Medication Instructions Recorded ibuprofen 800 mg PO Q6H PRN PRN #20 tab 08/29/15 acetaminophen [Tylenol] 650 mg PO Q4H PRN PRN #0 tab 04/21/18 albuterol sulfate 2 puff IH Q6H PRN #8.5 gm 04/21/18 diltiazem HCl [Cardizem] 30 mg PO TID #90 tab 04/21/18 levofloxacin [Levaquin] 750 mg PO DAILY #3 tab 04/21/18 nicotine 14 mg TRANSDERMAL DAILY #14 ea 04/21/18 prednisone 10 mg PO DAILY #30 tab 04/21/18 Allergies Allergy/AdvReac Type Severity Reaction Status Date / Time No Known Allergies Allergy Unverified 04/17/18 15:53 General Stated Complaint: Orthopedic SREEDHAR: 4 Review of Systems Review of Systems All systems reviewed & are unremarkable except as noted in HPI and below PFSH Medical History Asthma (Chronic) Reactive airway disease (Acute) SVT (supraventricular tachycardia) (Chronic) Social History Smoking/Tobacco Use Status: Current every day Exam Const General: cooperative, healthy appearing and no acute distress HENMT Head: normal to inspection Mouth: oral mucosae normal Eyes General: appearance normal, both eyes and all related structures Neck Neck: normal visual inspection Resp Effort & Inspection: normal respiratory effort and able to speak in complete sentences Cardio Rate: regular rate Skin General skin exam: no rashes or lesions noted Neuro General: alert, awake and oriented x3 Motor: muscle tone normal throughout Extrem Right lower extremity: lower leg Details: other (no tenderness overlying proximal fibula ), ankle (tenderness to palpation on medial aspect ) Details: no edema and abnormal ROM Details: pain with active ROM; no unusual warmth, no abrasions, no lacerations and no ecchymosis and foot Details: normal capillary refill, normal to inspection and vascular exam Details: dorsalis pedis pulse present and posterior tibial pulse present; no tenderness Psych Appearance: grossly normal Affect: normal affect Course Vital Signs Temperature 97.9 F 04/29/18 22:31 Pulse 102 H 04/29/18 22:31 Blood Pressure 121/65 04/29/18 22:31 Pulse Oximetry 95 04/29/18 22:31 Temperature 97.9 F 04/29/18 22:31 Temperature Source Skin 04/29/18 22:31 Pulse 102 H 04/29/18 22:31 Blood Pressure 121/65 04/29/18 22:31 Blood Pressure Position Sitting 04/29/18 22:31 Pulse Oximetry 95 04/29/18 22:31 Pain Level 5 04/29/18 22:31 Procedures Orthopedic Splinting/Casting Injury #1: Side: right Lower Extremity Injury Location: ankle Lower Extremity Immobilizer: posterior splint Other Orthopedic Equipment: crutches
[2018-04-29] MEDS: Ibuprofen 600 MG TAB PO (22:52)
--- NOTE | 2018-04-29 22:53 | DI.VRAD_ITS ---
EXAM: XR Right Ankle Complete, 3 or more Views EXAM DATE/TIME: 04/29/2018 10:36 PM CLINICAL HISTORY: 32 years old, female; Pain; Ankle; Right; Patient HX: S/P fall; Per PT: Jumped off wall; Additional info: R/O acute fracture TECHNIQUE: XR Right ankle 3 or more views. COMPARISON: No relevant prior studies available. FINDINGS: Bones/joints: On a single view there is a lucent line through the distal tibial metaphysis. Most likely this is an artifact. Soft tissues: Unremarkable. IMPRESSION: No convincing evidence of fracture. Suggest CT or MRI scan if symptoms persist. Dictated and Authenticated by: Brayan Montiel MD. Ordering:TRACEY BAUER MD
[2018-04-29 23:34] VITALS: BP 121/65; PULSE 102; O2SAT 95
--- NOTE | 2018-04-30 08:06 | W.ED.FU ---
X-ray discussed with radiology this morning and they agreed with likely tibial fracture. Patient was called on cell phone today and message left regarding radiology confirmation of fracture this morning. Patient was placed in posterior splint last night. She is instructed to call orthopedics today to schedule follow-up appointment for reevaluation and no weightbearing. She was also instructed to call the ER today with any questions.
== END 2018-04-29 23:34 | disposition home or self-care (01) ==
LOC: ER 23:50
PROVIDERS: Emergency Provider Physician Assistant; PCP Family Medicine
DX: S82.301A Unspecified fracture of lower end of right tibia, initial encounter for closed fracture (principal); W17.89XA Other fall from one level to another, initial encounter
CPT/HCPCS: 27760; 73610; E0114; L1902

== ENCOUNTER 2018-05-13 09:58 | Outpatient (CLI) | payer MEDICAID, SELFPAY ==
--- NOTE | 2018-05-13 09:51 | DI.RAD_ITS ---
SYMPTOMS/DIAGNOSIS: F/U FX RIGHT ANKLE: Three views. The fracture seen through the distal right tibia is unchanged compared to the prior examination. No new fracture or dislocation is seen.
== END 2018-05-13 10:18 ==
PROVIDERS: PCP Family Medicine; Visit Provider Orthopaedic Surgery
DX: S82.891D Other fracture of right lower leg, subsequent encounter for closed fracture with routine healing (principal)
CPT/HCPCS: 73610

== ENCOUNTER 2019-02-04 16:17 | Emergency (ER) | payer MEDICAID, SELFPAY ==
[2019-02-04 16:20] VITALS: BP 108/61; PULSE 68; RESP 14; TEMP 36.9; O2SAT 97
[2019-02-04 17:09] LABS: Bilirubin Negative (Negative); Blood Trace-lysed (Negative); Clarity Clear (Clear); Glucose Negative (Negative); Ketones Negative (Negative); Leukocyte Esterase Negative (Negative); Nitrite Negative (Negative); Specific Gravity 1.025 (1.005-1.025); Urobilinogen 0.2 EU/dL (Up TO 0.2)
[2019-02-04 17:21] LABS: Abs Immature Grans 0.01 k/cumm (0.0-0.09); Absolute Basophil Count 0.02 k/cumm (0.0-0.2); Absolute Eosinophil Count 0.11 k/cumm (0.0-0.7); Absolute Lymphocyte Count 3.47 k/cumm (1.2-3.4); Absolute Monocyte Count 0.35 k/cumm (0.11-0.7); Absolute Neutrophil Count 3.91 k/cumm (1.2-6.7); Basophils % 0.3; Eosinophils % 1.4; HCT 40.2 % (36.0-46.0); HGB 13.7 g/dL (12.0-15.5); Immature Grans % 0.1; Lymphocytes % 44.1; Mean Corp. HGB Concentration 34.1 g/dL (32.0-36.0); Mean Corpuscular Hemoglobin 29.8 pg (27.0-33.0); Mean Corpuscular Volume 87.6 fL (80-95); Mean Platelet Volume 9.6 fL (8.0-11.0); Monocytes % 4.4; Neutrophils % 49.7; Platelet Count 328 x1000/uL (130-400); RBC 4.59 m/cumm (4.00-5.20); RBC Distribution Width 13.3 % (11.7-14.6); White Blood Cell Count 7.87 k/cumm (4.4-10.8)
[2019-02-04 17:25] LABS: Bacteria Few HPF (Negative); C & S Indicated? No/Sq. Contamination; Casts Negative LPF (Negative); Crystals Negative HPF (Negative); Epithelial Cells Many HPF (Negative); Mucus Negative (Negative); WBC 0-2 HPF (0-5)
[2019-02-04 17:46] LABS: ALT 22 U/L (14-59); AST 11 U/L (15-37); Albumin 3.9 g/dL (3.4-5.0); Alkaline Phosphatase 68 U/L (46-116); Anion Gap 10.3 mmol/L (3-11); BUN 20 mg/dL (7-18); Bilirubin, Total 0.5 mg/dL (0.2-1.0); CO2 22.7 mmol/L (21.0-32.0); CREATININE 0.81 mg/dL (0.55-1.02); Calcium 8.5 mg/dL (8.5-10.1); Chloride 106 mmol/L (98-107); Glucose 84 mg/dL (70-100); Magnesium 1.9 mg/dL (1.8-2.4); Potassium 3.7 mmol/L (3.5-5.1); Sodium 139 mmol/L (136-145); Total Protein 7.4 g/dL (6.4-8.2)
--- NOTE | 2019-02-04 18:24 | ED.GENADUL_ITS ---
Discharge Plan Disposition Patient Disposition: HOME Condition: Stable Discharge Details Chief Complaint: GenMedical Clinical Impression: Malaise and fatigue Primary Care Provider: Jhoana Pedraza V ED Provider: Herman Herrera Home Meds and New Rx's Prescriptions: No Action ibuprofen 800 MG tablet 800 mg PO Q6H PRN PRN (Reason: Pain) Qty: 20 RF: 0 acetaminophen [Tylenol] 325 mg Tablet 650 mg PO Q4H PRN PRNQty: 0 RF: 0 albuterol sulfate 90 mcg/actuation HFA aerosol inhaler 2 puff IH Q6H PRN (Reason: shortness of breath or wheezing) Qty: 8.5 RF: 0 Discharge Instructions Instructions: Insomnia (ED), Fatigue (ED) Additional Instructions: It is very important that you get plenty of sleep and eat well. You should also stay well-hydrated. If not improving over the next week while getting plenty of sleep and taking care of yourself it is important you follow-up with your primary care provider for further testing and reassessment. Return immediately to the emergency department for any new or significant worsening of your symptoms or changing symptoms Stand Alone Forms: Work Release Referrals: Jhoana Pedraza MD [Primary Care Provider] - 1 week (Follow-up with your primary care provider in 1 week for reassessment) Discharge Data Discharge Date/Time-TO BE ENTERED AT DEPARTURE: 02/04/19 18:34 Medical Decision Making Patient presenting to the emergency department for chief complaint of malaise and fatigue. Patient states that this is been going on for the past 2 or 3 weeks. She does note that approximately 1 month ago she was bitten by a tick on the back of her neck that seemed to be embedded but she removed it and has had no other symptoms until 2 or 3 weeks ago. She does state intermittent right shoulder pain but states that it seems to be aggravated when she lies on her sleeps on it funny. Does state intermittent nausea but no vomiting, denies any fever chills, belly pain, or rash. She does report a area of swelling to her right lower back. Physical exam shows a lipoma type feature to the right lower back just above the buttock. It is movable, non-fixed, soft in nature. Exam is otherwise unremarkable, no peritoneal findings, normal active bowel sounds, normal cardiac and respiratory exam. Patient has no obvious area of rash. Unremarkable exam of the upper extremity. Given that patient has vague symptoms and complaints of tach but I do feel that labs are warranted. Given no emergent abdominal findings no peritoneal findings CT imaging is considered but I do not feel is necessary at this time given that symptoms are vague and have been on for 3 weeks. Patient denies any rapid worsening of symptoms either. Review of labs show a unremarkable CBC, CMP was slightly elevated BUN and trace amount of blood in urine otherwise nondiagnostic labs. Tick panel ordered but results are pending. Patient reassessed states no new or worsening symptoms which is expected. Did discuss with patient treatment for Lyme disease including doxycycline but I am not fully convinced that that is what she is experiencing. After full discussion we decided to wait on antibiotics until results come back. 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 She states that she has very irregular sleep patterns and cycles and recently has been having multiple nights of only getting 3 to 4 hours of sleep. Upon further discussion patient reports that this is been going on for the past 2 or 3 weeks. I feel that there is a significant amount of correlation between her symptoms and her sleep cycle. Thorough discussion of sleep hygiene did occur with patient. Return precautions were discussed with patient otherwise I feel that patient has no emergent or life-threatening condition but should follow-up with primary care provider in the next 1 to 2 weeks for reassessment especially if her symptoms continue in spite of being more aware of sleep hygiene. Patient informed that we will call her with any positive results of her tick panel. After discussion of diagnosis and plan of care patient has no further needs, questions, or concerns and states clear understanding to return to the emergency department for any worsening symptoms. HPI General Mode of arrival: ambulatory . Date/Time Provider Initiated Documentation: 02/04/19 16:24 . Limitations to Documentation: no limitations . Information obtained by: RN notes reviewed . History of Present Illness 33 year old F presents to the emergency department with the chief complaint of Fatigue, right shoulder pain, described as mild, with intensity rated at 3. Quality is described as aching, and is localized to the right. Patient reports no radiation. Patient started experiencing this week(s) (3) and it has been intermittent. Patient did receive the following treatments prior to arrival, none Related Data Home Medications Medication Instructions Recorded Confirmed ibuprofen 800 mg PO Q6H PRN PRN #20 tab 08/29/15 02/04/19 acetaminophen [Tylenol] 650 mg PO Q4H PRN PRN #0 tab 04/21/18 02/04/19 albuterol sulfate 2 puff IH Q6H PRN #8.5 gm 04/21/18 02/04/19 Previous Rx's Medication Instructions Recorded ibuprofen 800 mg PO Q6H PRN PRN #20 tab 08/29/15 acetaminophen [Tylenol] 650 mg PO Q4H PRN PRN #0 tab 04/21/18 albuterol sulfate 2 puff IH Q6H PRN #8.5 gm 04/21/18 Allergies Allergy/AdvReac Type Severity Reaction Status Date / Time No Known Allergies Allergy Verified 02/04/19 16:24 General Stated Complaint: GenMedical SREEDHAR: 3 Review of Systems Constitutional Denies body ache(s), Denies chills, Reports difficulty sleeping, Reports fatigue and Denies fever(s) Cardiovascular Denies chest pain and Denies dyspnea Respiratory Denies dyspnea Gastrointestinal Denies abdominal pain, Reports nausea and Denies vomiting Musculoskeletal Reports as per HPI, Denies numbness and Reports tingling Integumentary/Breasts Denies rash Neurologic Denies numbness, Denies sensory deficit and Reports tingling Psychiatric Reports abnormal sleep pattern Endocrine Denies change in body appearance and Reports fatigue PFSH Medical History Asthma (Chronic) Reactive airway disease (Acute) SVT (supraventricular tachycardia) (Chronic) Social History Smoking/Tobacco Use Status: Current every day Alcohol Intake: current Alcohol Intake frequency: a few times a month Drug use: Occasionally Substance use type: marijuana Do you feel safe at home: Yes Do you feel safe in your relationship?: Yes Exam Const General: cooperative, no acute distress and not ill appearing Orientation: alert, awake and oriented x3 HENMT Mouth: moist mucous membranes Resp Effort & Inspection: normal respiratory effort, able to speak in complete sentences and no respiratory distress Cardio Rate: regular rate Rhythm: regular rhythm Heart Sounds: S1 normal, S2 normal, no click, no gallops, no murmurs and no rubs GI Inspection: normal to inspection Palpation: soft, not firm, no guarding, not rigid and nontender Back/Spine/Pelvis Thoracic/Lumbar Spine: thoracic and lumbar spine normal to inspection, No thoracic spinal tenderness, No lumbar spinal tenderness and other (2 cm lipoma on the lower back above mid buttock. ) Skin General skin exam: no rashes or lesions noted Neuro General: alert, awake, oriented x3, moves all extremities and no focal motor deficits Extrem Right upper extremity: normal to inspection, full ROM, normal capillary refill and no joint enlargement Course Vital Signs Temperature 36.9 C 02/04/19 16:20 Pulse 68 02/04/19 16:20 Respiratory Rate 14 02/04/19 16:20 Blood Pressure 108/61 02/04/19 16:20 Pulse Oximetry 97 02/04/19 16:20 Temperature 36.9 C 02/04/19 16:20 Temperature Source Skin 02/04/19 16:20 Pulse 68 02/04/19 16:20 Respiratory Rate 14 02/04/19 16:20 Respiratory Effort Non-Labored 02/04/19 16:28 Respiratory Depth Normal 02/04/19 16:28 Respiratory Pattern Normal 02/04/19 16:28 Blood Pressure 108/61 02/04/19 16:20 Blood Pressure Position Sitting 02/04/19 16:20 Pulse Oximetry 97 02/04/19 16:20 Oxygen Delivery Method Room Air 02/04/19 16:20 Oxygen Flow Rate 0 02/04/19 16:20 Pain Level 5 02/04/19 16:20 Lab/Test Results Lab/Test Results: Laboratory Tests Range/Units 02/04/19 02/04/19 02/04/19 16:54 17:10 17:10 WBC (4.4-10.8) k/cumm 7.87 RBC (4.00-5.20) m/cumm 4.59 Hgb (12.0-15.5) g/dL 13.7 Hct (36.0-46.0) % 40.2 MCV (80-95) fL 87.6 MCH (27.0-33.0) pg 29.8 MCHC (32.0-36.0) g/dL 34.1 RDW (11.7-14.6) % 13.3 Plt Count (130-400) x1000/uL 328 MPV (8.0-11.0) fL 9.6 Immature Gran % 0.1 Neutrophils % 49.7 Lymphocytes % 44.1 Monocytes % 4.4 Eosinophils % 1.4 Basophils % 0.3 Absolute Neutrophils (1.2-6.7) k/cumm 3.91 Absolute Lymphocytes (1.2-3.4) k/cumm 3.47 H Absolute Monocytes (0.11-0.7) k/cumm 0.35 Absolute Eosinophils (0.0-0.7) k/cumm 0.11 Absolute Basophils (0.0-0.2) k/cumm 0.02 Sodium (136-145) mmol/L 139 Potassium (3.5-5.1) mmol/L 3.7 Chloride (98-107) mmol/L 106 Carbon Dioxide (21.0-32.0) mmol/L 22.7 Anion Gap (3-11) mmol/L 10.3 BUN (7-18) mg/dL 20 H Creatinine (0.55-1.02) mg/dL 0.81 Estimated GFR/1.73 m2 (mL/min/1.73m2) >= 60.00 Glucose (70-100) mg/dL 84 Calcium (8.5-10.1) mg/dL 8.5 Magnesium (1.8-2.4) mg/dL 1.9 Total Bilirubin (0.2-1.0) mg/dL 0.5 AST (15-37) U/L 11 L ALT (14-59) U/L 22 Alkaline Phosphatase (46-116) U/L 68 Total Protein (6.4-8.2) g/dL 7.4 Albumin (3.4-5.0) g/dL 3.9 Urine Color (Yellow) Yellow Urine Clarity (Clear) Clear Urine pH (5-8) 6.0 Ur Specific [place] (1.005-1.025) 1.025 Urine Protein (Negative) mg/dL Negative Urine Ketones (Negative) mg/dL Negative Urine Blood (Negative) Trace-lysed H Urine Nitrite (Negative) Negative Urine Bilirubin (Negative) Negative Urine Urobilinogen (Up TO 0.2) EU/dL 0.2 Ur Leukocyte Esterase (Negative) Negative Urine RBC (0-2) 3-5 H Urine WBC (0-5) HPF 0-2 Ur Epithelial Cells (Negative) HPF Many Urine Crystals (Negative) HPF Negative Urine Bacteria (Negative) HPF Few Urine Casts (Negative) LPF Negative Urine Mucus (Negative) Negative Ur Culture Indicated? No/sq. contamination Urine Glucose (Negative) mg/dL Negative POC- Test(urine) Negative
[2019-02-04 18:35] VITALS: BP 108/61; PULSE 68; RESP 14; TEMP 36.9; O2SAT 97
[2019-02-07 22:26] LABS: Anaplasma phagocytophilum Negative (Negative); B. miyamotoi PCR Negative (Negative); Babesia divergens/MO-1 Negative (Negative); Babesia duncani Negative (Negative); Babesia microti Negative (Negative); Ehrlichia chaffeensis Negative (Negative); Ehrlichia ewingii/canis Negative (Negative); Ehrlichia muris eauclairensis Negative (Negative)
[2019-02-08 11:56] LABS: Lyme Ab w Rflx to Lyme Confirm Negative
== END 2019-02-04 18:34 | disposition home or self-care (01) ==
PROVIDERS: Emergency Provider Nurse Practitioner Family; PCP Family Medicine
DX: R53.81 Other malaise (principal); R53.83 Other fatigue; S10.96XA Insect bite of unspecified part of neck, initial encounter; W57.XXXA Bitten or stung by nonvenomous insect and other nonvenomous arthropods, initial encounter; R11.0 Nausea
CPT/HCPCS: 36415; 80053; 81025; 87798; 99282; 81003; 81015; 83735; 85025; 86618; 99283

== ENCOUNTER 2019-03-04 12:08 | Outpatient (REF) | payer MEDICAID, SELFPAY ==
[2019-03-04 19:09] LABS: TSH 1.07 uIU/mL (0.36-3.74)
== END 2019-03-04 12:28 ==
LOC: NCHCO 12:08
PROVIDERS: PCP Family Medicine; Visit Provider Nurse Practitioner Family
DX: Z00.00 Encounter for general adult medical examination without abnormal findings (principal); Z13.29 Encounter for screening for other suspected endocrine disorder
CPT/HCPCS: 84443

== ENCOUNTER 2019-05-03 13:18 | Outpatient (REF) | payer MEDICAID, SELFPAY ==
--- NOTE | 2019-05-03 12:00 | PAPFT_PTH ---
PATIENT: Jolene Carlin LOC: [facility] U#:[id number] AGE/SX: 34/F ROOM: RE05/03/[address]: Kendrick Stewart : 1985 BED: DIS: 05/03/2019 SPEC #: [id number] RECD: 05/03/19 18:45 STATUS: MELISSA REGloria #: [id number] LYUDMILA: 05/03/19 12:[address]: Kendrick Stewart DEPT: [facility] Cytology RECD BY: Fartun Sanchez ENTERED: 05/03/19 18:45 SP TYPE: PAPFT OTHR DR: Jhoana Pedraza V Tissues: 1 - CX/ENDOCX FOR PAP SMEARS Procedures: PAP THIN PREP/[facility] Screening HPV DNA PROBE Comments: [id number] (CHLAMYDIA/GC)
[2019-05-04 14:52] LABS: Chlamydia Result Negative (Negative)
[2019-05-04 15:24] LABS: GC Result Negative (Negative)
[2019-05-05 11:00] LABS: HIV-1/2 Ag & Ab Screen Negative (Negative)
[2019-05-05 11:24] LABS: HBs Antibody, Quant 161.7 mIU/mL (See Note); Hepatitis B Surface Ab Positive (See Note)
[2019-05-05 11:34] LABS: Hepatitis C Ab w Rflx HCV PCR Negative (Negative)
[2019-05-05 11:40] LABS: Hepatitis B Surface Ag Negative (Negative)
[2019-05-05 11:49] LABS: Syphilis Serology (RPR) Negative (Negative)
== END 2019-05-03 13:38 ==
LOC: NCHCN 13:18
PROVIDERS: PCP Family Medicine; Visit Provider Nurse Practitioner Family
DX: Z20.2 Contact with and (suspected) exposure to infections with a predominantly sexual mode of transmission (principal); Z11.4 Encounter for screening for human immunodeficiency virus [HIV]; Z11.59 Encounter for screening for other viral diseases; Z11.3 Encounter for screening for infections with a predominantly sexual mode of transmission; Z12.4 Encounter for screening for malignant neoplasm of cervix
CPT/HCPCS: 86706; 86803; 87340; 87389; 87491; 87591; 88142; 86592; 87624

== ENCOUNTER 2019-07-05 13:57 | Outpatient (REF) | payer MEDICAID, SELFPAY ==
--- NOTE | 2019-07-05 13:45 | CER_PTH ---
PATIENT: Jolene Carlin LOC: [facility] U#:[id number] AGE/SX: 34/F ROOM: RE07/05/[address]: Nida Resendiz : 1985 BED: DIS: 07/05/2019 SPEC #: [id number] RECD: 07/05/19 16:59 STATUS: MELISSA REGloria #: [id number] LYUDMILA: 07/05/19 13:[address]: Nida Resendiz DEPT: Surgical Specimen RECD BY: Fartun Sanchez ENTERED: 07/05/19 17:00 SP TYPE: CER OTHR DR: Jhoana Pedraza V Tissues: 1 - CERVICAL BIOPSY 2 - ENDOCERVICAL BX/CURRETTE Procedures: GROSS AND MICRO LEVEL 4 Comments: [id number]
== END 2019-07-05 14:17 ==
LOC: LBN 13:57
PROVIDERS: PCP Family Medicine; Visit Provider Obstetrics & Gynecology Gynecology
DX: N87.0 Mild cervical dysplasia (principal); N88.8 Other specified noninflammatory disorders of cervix uteri
CPT/HCPCS: 88305

== ENCOUNTER 2020-06-06 15:19 | Outpatient (REF) | payer MEDICAID, SELFPAY ==
--- NOTE | 2020-06-06 13:00 | PAPFT_PTH ---
PATIENT: Jolene Carlin LOC: [facility] U#:[id number] AGE/SX: 35/F ROOM: RE06/06/[address]: Keturah Medrano NP : 1985 BED: DIS: 06/06/2020 SPEC #: [id number] RECD: 06/06/20 17:47 STATUS: MELISSA REGloria #: [id number] LYUDMILA: 06/06/20 13:[address]: Keturah Medrano NP DEPT: [facility] Cytology RECD BY: Fartun Sanchez ENTERED: 06/06/20 17:47 SP TYPE: PAPFT OTHR DR: Jhoana Pedraza V Tissues: 1 - CX/ENDOCX FOR PAP SMEARS Procedures: PAP THIN PREP/UVM Screening HPV DNA PROBE Comments: [id number] (CHLAMYDIA/GC)
[2020-06-09 07:11] LABS: Chlamydia Result Negative (Negative); GC Result Negative (Negative)
== END 2020-06-06 15:39 ==
LOC: LBN 15:19
PROVIDERS: PCP Family Medicine; Visit Provider Nurse Practitioner Women's Health
DX: Z12.4 Encounter for screening for malignant neoplasm of cervix (principal); Z11.3 Encounter for screening for infections with a predominantly sexual mode of transmission; Z11.51 Encounter for screening for human papillomavirus (HPV)
CPT/HCPCS: 87491; 87591; 88142; 87624

== ENCOUNTER 2020-07-17 09:52 | Emergency (ER) | payer MEDICAID, SELFPAY ==
[2020-07-17 10:00] VITALS: BP 97/62; PULSE 97; RESP 16; TEMP 36.5; O2SAT 98
--- NOTE | 2020-07-17 10:15 | DI.US_ITS ---
EXAM: US PELVIS CLINICAL HISTORY: IUD malpositioned?, pain TECHNIQUE: Ultrasound of the pelvis was performed both transabdominal and transvaginal. COMPARISON: None FINDINGS: Transabdominal pelvic ultrasound exam was performed. Patient apparently refused transvaginal study. UTERUS: Measures 6.7 cm length x 3.4 cm AP x 4.5 cm wide. There are no obvious uterine fibroids.There is an IUD which appears to be in satisfactory position in the endometrial canal. There is no fluid in the endometrial canal evident on this transabdominal st udy. Endometrial thickness measures 3 mm. CERVIX: There are no obvious nabothian cysts. RIGHT OVARY: Measures 2.2 x 1.1 x 1.6 cm cm No significant cysts nor masses evident in the right ovary. Vascular flow demonstrated in both ovaries LEFT OVARY: Measures 2.2 x 1.6 x 2.1 cm No significant cysts nor masses evident in the left ovary. CUL-DE-SAC: No free fluid evident. IMPRESSION: 1. IUD is in satisfactory position within the uterine canal. No other uterus findings evident on thi s transabdominal study (patient apparently refused transvaginal exam) 2. No abnormal ovarian findings. 3. No free fluid evident in the adnexal regions and cul-de-sac. DATA REPOSITORY:
--- NOTE | 2020-07-17 10:30 | W.ED.GENAD ---
Discharge Plan Disposition Patient Disposition: HOME Condition: Good Discharge Details Clinical Impression: Back pain Primary Care Provider: Kendrick Stewart ED Provider: Fartun Nguyễn Home Meds and New Rx's Prescriptions: New cyclobenzaprine 10 mg tablet 10 mg PO TID PRNQty: 12 RF: 0 lidocaine [Lidoderm] 5 % adhesive patch,medicated 1 patch topical DAILY Qty: 15 RF: 0 No Action Mirena 20 mcg/24 hours (6 yrs) 52 mg intrauterine device 1 device intrauterine ONCE RF: 0 ibuprofen 800 MG tablet 800 mg PO Q6H PRN PRN (Reason: Pain) Qty: 20 RF: 0 acetaminophen [Tylenol] 325 mg Tablet 650 mg PO Q4H PRN PRNQty: 0 RF: 0 Discharge Instructions Instructions: Back Pain (ED) Additional Instructions: You may use a donut shaped cushion to help alleviate the pressure in your spine region Ibuprofen 600 mg every 8 hours with food Tylenol 1 g every 6 hours as needed for pain You may apply Lidoderm patch to area of tenderness, 12 hours on, 12 hours off Flexeril as needed for musculoskeletal pain, do not drive for 8 hours after taking this medication as it will make you drowsy Warm compresses for discomfort Recheck in 1 week with persistent pain No lifting greater than 5 pounds until your symptoms improve Light stretching can help your symptoms Return changes in bowel or bladder, groin numbness, fever, chills, or with any new or worsening complete Medical Decision Making Ultrasound does not show acute pathology per radiology interpretation Patient feeling symptomatically improved after Flexeril, Motrin, Tylenol She feels comfortable discharge home Instructed to refrain from heavy lifting and repetitive motion IUD appropriately positioned on ultrasound per radiology interpretation Abdomen completely nontender No clinical evidence of cauda equina syndrome No clinical evidence of perirectal abscess Feeling symptomatically improved Recheck in 3 to 5 days recommended Return cautions discussed patient expressed understanding Differential Diagnosis Differential Diagnosis: Cauda equina syndrome, perirectal abscess, msk back pain, IUD displacement Medical Records Medical records reviewed: Yes I reviewed the patient's medical records. HPI This 35-year-old female presents with pain to her low back and coccyx region. She states the pain started on Friday. 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 Pain started abruptly and at 5 PM. She states that she was seated in a chair when the pain began and was worsened when she stood up. She states she is unable to that secondary to discomfort. Denies strength or sensation changes. Does state that the pain radiated from position change down her legs. The pain on the posterior mid hip region bilaterally. She denies any abdominal pain, chest pain, shortness of breath, nausea, vomiting, or any additional complaints at this time. She is status post IUD placement, June which is quite uncomfortable. She states she also had STD testing at that time. She does have a new partner, however she had STD testing after their first sexual encounter. She did not wear condoms during the encounter. Denies history of IV drug abuse, groin numbness, strength or sensation changes to extremities, weakness to extremities, fever or chills. General Date/Time Provider Initiated Documentation: 07/17/20 10:02. Related Data Home Medications Medication Instructions Recorded Confirmed ibuprofen 800 mg PO Q6H PRN PRN #20 tab 08/29/15 07/17/20 acetaminophen [Tylenol] 650 mg PO Q4H PRN PRN #0 tab 04/21/18 07/17/20 levonorgestrel 20 mcg/24 hours (6 1 device INTRAUTERINE ONCE 06/06/20 07/17/20 yrs) 52 mg intrauterine device cyclobenzaprine 10 mg PO TID PRN #12 tab 07/17/20 lidocaine [Lidoderm] 1 patch TOPICAL DAILY #15 ea 07/17/20 Previous Rx's Medication Instructions Recorded ibuprofen 800 mg PO Q6H PRN PRN #20 tab 08/29/15 acetaminophen [Tylenol] 650 mg PO Q4H PRN PRN #0 tab 04/21/18 cyclobenzaprine 10 mg PO TID PRN #12 tab 07/17/20 lidocaine [Lidoderm] 1 patch TOPICAL DAILY #15 ea 07/17/20 Allergies Allergy/AdvReac Type Severity Reaction Status Date / Time No Known Allergies Allergy Verified 07/17/20 10:05 General Stated Complaint: Nk/Back Pain SREEDHAR: 3 Review of Systems Narrative: Review of systems negative x7 aside from where indicated in HPI, specifically no abdominal pain, nausea, vomiting, chest pain, change in bowel or bladder, fever, chills PFSH Medical History Anxiety and depression Asthma IUD (intrauterine device) in place (06/06/20) Mirena LGSIL on Pap smear of cervix 05/201907/05/2019 colpo directed biopsies: REBECCA-1. Plan repeat Pap in 1 year Reactive airway disease Reactive airway disease Substance abuse 07/2019. History of EtOH use. Completed [facility] [place] currently clean and sober SVT (supraventricular tachycardia) Tobacco use 07/2019 patient counseled regarding cessation Surgical History (Updated 07/18/19 @ 21:47 by Nida Resendiz MD) H/O eye surgery Social History (Updated 07/18/19 @ 21:44 by Nida Resendiz MD) Smoking/Tobacco Use Status: Current every day Tobacco Type: cigarettes Tobacco: How many years used: 13 Quit status: quit date established Smoking risk assessment performed?: Yes Alcohol Intake: never Drug use: Daily Substance use type: marijuana Household members: other Details: Sarah Housing: other Details: has moved back in with mother during recovery Number of Children: 1 current occupation: not employed Do you feel safe at home: Yes Do you feel safe in your relationship?: Yes History History 5 Para 1 Hx # Term Pregnancies 1 Multiple births Hx # Pregnancies Ectopic pregnancies AB induced Hx Number of Living Children 1 AB spontaneous Exam Const General: cooperative and healthy appearing GI Other: No CVA tenderness No abdominal tenderness on exam Skin General skin exam: no rashes or lesions noted Full body images: 1. Reproducible tenderness, no palpable abscess, no rashes, no saddle anesthesia present Neuro General: patient alert and patient oriented x3 Other: DTRs intact in bilateral lower extremities, strength and sensation intact to bilateral lower extremities Negative straight leg raise bilaterally Extrem Right lower extremity: normal to inspection and normal capillary refill Other: Distal pulses intact Course Vital Signs Vital signs: Vital Signs Temperature 36.5 C 07/17/20 10:00 Pulse 97 H 07/17/20 10:00 Respiratory Rate 16 07/17/20 10:00 Blood Pressure 97/62 L 07/17/20 10:00 Pulse Oximetry 98 07/17/20 10:00 Temperature 36.5 C 07/17/20 10:00 Temperature Source Skin 07/17/20 10:00 Pulse 97 H 07/17/20 10:00 Respiratory Rate 16 07/17/20 10:00 Respiratory Effort Non-Labored 07/17/20 10:00 Blood Pressure 97/62 L 07/17/20 10:00 Blood Pressure Position Sitting 07/17/20 10:00 Pulse Oximetry 98 07/17/20 10:00 Oxygen Delivery Method Room Air 07/17/20 10:00 Oxygen Flow Rate 0 07/17/20 10:00 Pain Level 7 07/17/20 10:06
[2020-07-17 10:45] LABS: Bilirubin Negative (Negative); Blood Trace-intact (Negative); Clarity Clear (Clear); Glucose Negative (Negative); Ketones Negative (Negative); Leukocyte Esterase Negative (Negative); Nitrite Negative (Negative); Specific Gravity >= 1.030 (1.005-1.025); Urobilinogen 0.2 EU/dL (Up TO 0.2); pH 5.5 (5-8)
[2020-07-17] MEDS: Acetaminophen 500 MG TAB 1000 MG PO (10:50)
[2020-07-17] MEDS: Cyclobenzaprine 10 MG TAB PO (10:50)
[2020-07-17] MEDS: Ketorolac 15 MG/ML VIAL IM (10:51)
[2020-07-17 10:58] LABS: Bacteria Few HPF (Negative); C & S Indicated? No/Sq. Contamination; Casts Negative LPF (Negative); Crystals Negative HPF (Negative); Epithelial Cells Many HPF (Negative); Mucus Trace (Negative); WBC 0-2 HPF (0-5)
--- NOTE | 2020-07-17 11:11 | DI.RAD_ITS ---
EXAM: XR SACRUM COCCYX CLINICAL HISTORY: pain post shoveling injury. TECHNIQUE: 2D digital imaging was performed. COMPARISON: No exams were available for comparison FINDINGS: There is no evidence of sacral fracture nor diastasis of the SI joints. No obvious coccyx fracture. No osseous lesions in the sacrum. Sacroiliac joints appear unremarkable. Incidentally noted is an IUD in the pelvis. IMPRESSION: DATA REPOSITORY: RADIATION DOSE DELIVERED:
[2020-07-17 12:35] VITALS: BP 98/62; PULSE 63; RESP 16; TEMP 36.6; O2SAT 99
== END 2020-07-17 12:38 | disposition home or self-care (01) ==
PROVIDERS: Emergency Provider Physician Assistant; PCP Nurse Practitioner Family
DX: M54.5 Low back pain (principal)
CPT/HCPCS: 81025; 96372; 99284; 72220; 76856; 81003; 81015; J1885

== ENCOUNTER 2022-10-10 13:17 | Emergency (ER) | payer MEDICAID, SELFPAY ==
--- NOTE | 2022-10-10 13:15 | RT.EKG_ITS ---
APPROVED REPORT Exam: Resting ECG Reason for Exam: chest pain Patient Location: E HR:94 bpm ECG Measurements Heart Rate 94 AXIS MS 148 P 81 QRSd 80 QRS 100 QT 344 T 57 QTc 430 Conclusion Sinus rhythm...normal P axis, V-rate 60- 99 Probable left atrial enlargement...P >50mS, <-0.10mV V1. Sinus. Normal axis. No STEMI. I have reviewed and interpreted ECG and agree with software generated interpretation.
[2022-10-10 13:18] VITALS: BP 98/58; PULSE 104; RESP 20; TEMP 36.9; O2SAT 100
--- NOTE | 2022-10-10 13:30 | DI.RAD_ITS ---
Exam(s) XR CHEST 2V PA LATERAL EXAM: XR CHEST 2V PA LATERAL CLINICAL HISTORY: chest pain, r/o acute disease. TECHNIQUE: 2D digital imaging was performed. COMPARISON: No exams were available for comparison FINDINGS: 2 views: Heart size is normal. The mediastinum is not widened. Lungs are clear. No infiltrates nor pleural effusions. IMPRESSION: No acute pulmonary findings. DATA REPOSITORY: RADIATION DOSE DELIVERED:
[2022-10-10 14:03] LABS: Abs Immature Grans 0.02 10^3/uL (0.0-0.06); Absolute Basophil Count 0.05 10^3/uL (0.0-0.2); Absolute Eosinophil Count 0.09 10^3/uL (0.0-0.7); Absolute Lymphocyte Count 2.71 10^3/uL (1.2-3.4); Absolute Monocyte Count 0.26 10^3/uL (0.1-0.8); Absolute Neutrophil Count 4.75 10^3/uL (1.2-6.7); Basophils % 0.6; Eosinophils % 1.1; HCT 40.6 % (36.0-46.0); HGB 13.5 g/dL (11.2-15.7); Immature Grans % 0.3; Lymphocytes % 34.4; MCH 28.9 pg (27.0-33.0); MCHC 33.3 % (32.0-36.0); MCV 87 fL (80-95); Monocytes % 3.3; Neutrophils % 60.3; Platelet Count 294 10^3/uL (130-400); RBC 4.67 10^6/uL (3.93-5.22); RDW 12.6 % (11.7-14.6); RDW-SD 40.3 fL; WBC 7.88 10^3/uL (4.4-10.8)
[2022-10-10 14:10] VITALS: RESP 16
[2022-10-10 14:26] LABS: ALT 22 U/L (14-59); AST 13 U/L (15-37); Albumin 4.5 g/dL (3.4-5.0); Alkaline Phosphatase 54 U/L (46-116); Anion Gap 9.6 mmol/L (3-11); BUN 18 mg/dL (7-18); Bilirubin, Total 0.7 mg/dL (0.2-1.0); CO2 23.4 mmol/L (21.0-32.0); CREATININE 1.1 mg/dL (0.55-1.02); Calcium 9.3 mg/dL (8.5-10.1); Chloride 102 mmol/L (98-107); Estimated GFR 66.78 (mL/min/1.73m2); Glucose 89 mg/dL (74-106); Lipase 22 U/L (16-77); Magnesium 1.9 mg/dL (1.8-2.4); Sodium 135 mmol/L (136-145); Troponin I < 50 ng/L (<or=60)
[2022-10-10 14:34] LABS: D-Dimer 308 ng/mlFEU (<500)
--- NOTE | 2022-10-10 14:57 | ED.GENADUL_ITS ---
Discharge Plan Disposition Patient Disposition: Home Condition: Improving Discharge Details Clinical Impression: Chest pain, Anxiety, Paresthesias Primary Care Provider: Chela Garzon ED Provider: Sara Miller Home Meds and New Rx's Prescriptions: Continued Mirena 20 mcg/24 hours (6 yrs) 52 mg intrauterine device 1 device intrauterine ONCE Rx Instructions: as a single dose ibuprofen 800 MG tablet 800 mg PO Q6H PRN PRN (Reason: Pain) Qty: 20 0RF cyclobenzaprine 10 mg tablet 10 mg PO TID PRNQty: 12 0RF Patient Comments: No longer using 10/10/22 CT lidocaine [Lidoderm] 5 % adhesive patch,medicated 1 patch topical DAILY Qty: 15 0RF Patient Comments: No longer using 10/10/22 CT Rx Instructions: leave on most painful area for up to 12 hrs buspirone 5 mg tablet 5 mg PO BID Vyvanse 40 mg capsule 40 mg PO DAILY Patient Comments: TAKE 1 CAPSULE BY MOUTH EVERY DAY acetaminophen [Tylenol] 325 mg Tablet 650 mg PO Q4H PRN PRNQty: 0 0RF Discharge Instructions Instructions: Chest Pain (ED), Anxiety (ED) Additional Instructions: Your blood tests, EKG and imaging today are reassuring and show no evidence of acute concerning or significant findings. Your symptoms could be secondary to anxiety, GERD, muscle strain. Drink plenty of fluids and get plenty of rest. Start taking an an [id number] Pepcid once daily for the next 2 weeks. Take the Ativan as needed and directed for symptoms of anxiety, chest pain, shortness of breath. An outpatient transit bus operator has been ordered. Please contact the specialty clinics for scheduling of this test. Follow-up with your primary care doctor in 1 week. Return to the emergency department with any worsening or new concerning symptoms. Discharge Orders Other Ambulatory Orders: Holter Monitor (Routine) Timeframe: 1 Week Facility: [facility] - Location: Respiratory Therapy Ordered By: Sara Miller Discharge Data Discharge Date/Time-TO BE ENTERED AT DEPARTURE: 10/10/22 17:37 Discharge Physician: Sara Miller Medical Decision Making 37-year-old female with a history of anxiety, PTSD and previous SVT presents for 3 days of feeling of pressure in her chest and throat along with intermittent shortness of breath, dizziness and tingling in her hands and feet. EKG notes a rate of 94, sinus, normal axis, normal intervals and no acute ischemic findings. Her blood pressure is mildly soft at 98/58 which has been seen in previous visits. Her heart rates minimally elevated at 104. The remainder of her vitals are within normal limits. Patient appears quite anxious and animated while talking. She is able to speak in full sentences and swallow her secretions. Her chest is nontender. Her lungs are clear throughout. She has no focal deficits. Suspect most likely anxiety, also consider GERD, muscle strain. She has no tearing or ripping chest pain to suggest dissection. She has no bruits or focal deficits to suggest carotid artery dissection. She has no dysphagia, sore throat, drooling or trismus to suggest an acute oropharyngeal infection or stricture or foreign body. Screening labs, chest x-ray obtained on arrival due to high volume and acuity. Labs and imaging reviewed and unremarkable. D-dimer, troponin and TSH within normal limits. Chest x-ray negative. Patient was given a dose of Pepcid and Ativan p.o. and felt much better and requested to go home. An order for an outpatient transit bus operator was placed. Advised to follow up with the primary care doctor for re-evaluation. Usual and customary return precautions given prior to discharge. Medical Records Medical records reviewed: Yes I reviewed the patient's medical records. Imaging Data Radiologic Study: Radiologist's impression: XR CHEST 2V PA ? LATERAL CLINICAL HISTORY: ? chest pain, r/o acute disease. ? TECHNIQUE:? 2D digital imaging was performed. COMPARISON:? No exams were available for comparison FINDINGS: 2 views: Heart size is normal.? The mediastinum is not widened. Lungs are clear.? No infiltrates nor pleural effusions. IMPRESSION: No acute pulmonary findings. Lab Data Lab results reviewed: Yes I reviewed the patient's lab results. Labs: Laboratory Tests Range/Units 10/10/22 10/10/22 10/10/22 13:56 13:56 13:56 WBC (4.4-10.8) 10^3/uL 7.88 RBC (3.93-5.22) 10^6/uL 4.67 Hgb (11.2-15.7) g/dL 13.5 Hct (36.0-46.0) % 40.6 MCV (80-95) fL 87 MCH (27.0-33.0) pg 28.9 MCHC (32.0-36.0) % 33.3 RDW (11.7-14.6) % 12.6 Plt Count (130-400) 10^3/uL 294 MPV (8.0-11.0) fL 9.0 Immature Gran % 0.3 Neutrophils % 60.3 Lymphocytes % 34.4 Monocytes % 3.3 Eosinophils % 1.1 Basophils % 0.6 Nucleated RBC % (0.0-0.3) % 0.0 Absolute Neutrophils (1.2-6.7) 10^3/uL 4.75 Absolute Lymphocytes (1.2-3.4) 10^3/uL 2.71 Absolute Monocytes (0.1-0.8) 10^3/uL 0.26 Absolute Eosinophils (0.0-0.7) 10^3/uL 0.09 Absolute Basophils (0.0-0.2) 10^3/uL 0.05 D-Dimer (<500) ng/mlFEU 308 Sodium (136-145) mmol/L 135 L Potassium (3.5-5.1) mmol/L 4.0 Chloride (98-107) mmol/L 102 Carbon Dioxide (21.0-32.0) mmol/L 23.4 Anion Gap (3-11) mmol/L 9.6 BUN (7-18) mg/dL 18 Creatinine (0.55-1.02) mg/dL 1.1 H Est GFR (CKD-EPI 2020) (mL/min/1.73m2) 66.78 Glucose (74-106) mg/dL 89 Calcium (8.5-10.1) mg/dL 9.3 Magnesium (1.8-2.4) mg/dL 1.9 Total Bilirubin (0.2-1.0) mg/dL 0.7 AST (15-37) U/L 13 L ALT (14-59) U/L 22 Alkaline Phosphatase (46-116) U/L 54 Troponin I (<or=60) ng/L < 50 Total Protein (6.4-8.2) g/dL 8.0 Albumin (3.4-5.0) g/dL 4.5 Lipase (16-77) U/L 22 TSH (0.36-3.74) uIU/mL Range/Units 05/11/23 05/11/23 13:56 13:56 WBC (4.4-10.8) 10^3/uL RBC (3.93-5.22) 10^6/uL Hgb (11.2-15.7) g/dL Hct (36.0-46.0) % MCV (80-95) fL MCH (27.0-33.0) pg MCHC (32.0-36.0) % RDW (11.7-14.6) % Plt Count (130-400) 10^3/uL MPV (8.0-11.0) fL Immature Gran % Neutrophils % Lymphocytes % Monocytes % Eosinophils % Basophils % Nucleated RBC % (0.0-0.3) % Absolute Neutrophils (1.2-6.7) 10^3/uL Absolute Lymphocytes (1.2-3.4) 10^3/uL Absolute Monocytes (0.1-0.8) 10^3/uL Absolute Eosinophils (0.0-0.7) 10^3/uL Absolute Basophils (0.0-0.2) 10^3/uL D-Dimer (<500) ng/mlFEU Sodium (136-145) mmol/L Potassium (3.5-5.1) mmol/L Chloride (98-107) mmol/L Carbon Dioxide (21.0-32.0) mmol/L Anion Gap (3-11) mmol/L BUN (7-18) mg/dL Creatinine (0.55-1.02) mg/dL Est GFR (CKD-EPI 2020) (mL/min/1.73m2) Glucose (74-106) mg/dL Calcium (8.5-10.1) mg/dL Magnesium (1.8-2.4) mg/dL Total Bilirubin (0.2-1.0) mg/dL AST (15-37) U/L ALT (14-59) U/L Alkaline Phosphatase (46-116) U/L Troponin I (<or=60) ng/L Total Protein (6.4-8.2) g/dL Albumin (3.4-5.0) g/dL Lipase (16-77) U/L Cancelled TSH (0.36-3.74) uIU/mL 0.86 ECG Data Attestation: I personally reviewed and interpreted this ECG (s) as follows: Interpretation: rate of 94, sinus, normal axis, normal intervals, no STEMI. HPI General Mode of arrival: ambulatory . Date/Time Provider Initiated Documentation: 10/10/22 13:44 . Limitations to Documentation: no limitations . Information obtained by: patient . HPI Narrative: Patient is a 37-year-old female with a former history of alcohol abuse, anxiety, depression, fatigue, migraines, asthma who presents with 3 days of pressure and tightness in her chest and throat. Patient states this does feel similar to when she has had anxiety in the past but more intense. She states she is able to eat and drink and has no difficulty swallowing. She states she has seen her PCP recently for these complaints and increased her Vyvanse and started on bupropion. Patient reports that she smokes marijuana daily but denies any recent alcohol or other drug use. She denies any known fever, cough, sore throat, ear pain, difficulty breathing, abdominal pain, nausea, vomiting, diarrhea or urinary symptoms. She denies any recent surgery, recent travel, leg pain or swelling. Related Data Home Medications Medication Instructions Recorded Confirmed ibuprofen 800 mg tablet 800 mg PO Q6H PRN PRN Pain #20 tabs 08/29/15 10/10/22 acetaminophen 325 mg tablet 650 mg PO Q4H PRN PRN #0 tabs 18 10/10/22 (Tylenol) levonorgestrel 21 mcg/24 hours (8 1 device intrauterine ONCE 06/06/20 10/10/22 yrs) 52 mg intrauterine device (Mirena) cyclobenzaprine 10 mg tablet 10 mg PO TID PRN #12 tabs 07/17/20 lidocaine 5 % topical patch 1 patch topical DAILY #15 ea 07/17/20 (Lidoderm) buspirone 5 mg tablet 5 mg PO BID 10/10/22 10/10/22 lisdexamfetamine 40 mg capsule 40 mg PO DAILY 10/10/22 10/10/22 (Vyvanse) Previous Rx's Medication Instructions Recorded ibuprofen 800 mg tablet 800 mg PO Q6H PRN PRN Pain #20 tabs 08/29/15 acetaminophen 325 mg tablet 650 mg PO Q4H PRN PRN #0 tabs 04/21/18 (Tylenol) cyclobenzaprine 10 mg tablet 10 mg PO TID PRN #12 tabs 07/17/20 lidocaine 5 % topical patch 1 patch topical DAILY #15 ea 07/17/20 (Lidoderm) Allergies Allergy/AdvReac Type Severity Reaction Status Date / Time No Known Allergies Allergy Verified 10/10/22 13:26 General Stated Complaint: Chest Pain SREEDHAR: 3 Review of Systems All systems reviewed & are unremarkable except as noted in HPI and below Constitutional Constitutional: Reports as per HPI, Denies chills and Denies fever(s) Eyes Eyes: Denies blurry vision ENT Ears, Nose, Mouth, and Throat: Reports dizziness, Denies sore throat and Denies throat swelling Cardiovascular Cardiovascular: Reports chest pain, Reports palpitations and Reports dyspnea Respiratory Respiratory: Denies cough and Reports dyspnea Gastrointestinal Gastrointestinal: Denies abdominal pain, Denies diarrhea and Denies vomiting Genitourinary Genitourinary: Denies hematuria and Denies dysuria Musculoskeletal Musculoskeletal: Denies back pain, Denies numbness and Reports tingling Integumentary/Breasts Skin/Breast: Denies lesions and Denies rash Neurologic Neurologic: Reports dizziness, Denies localized weakness, Denies numbness and Reports tingling Endocrine Endocrine: Reports palpitations Allergic/Immunologic Allergic/Immunologic: Denies throat swelling PFSH All Active Problems (Updated 10/10/22 @ 17:31 by Sara Millre DO) Chest pain (Acute) Anxiety (Chronic) Paresthesias (Acute) Reactive airway disease (Acute) Tobacco use (Chronic) 07/2019 patient counseled regarding cessation LGSIL on Pap smear of cervix (Acute) 05/201907/05/2019 colpo directed biopsies: REBECCA-1. Plan repeat Pap in 1 year Substance abuse (Acute) 07/2019. History of EtOH use. Completed [place] currently clean and sober Anxiety and depression (Acute) IUD (intrauterine device) in place (Chronic 06/06/20) Mirena Sleep disorder (Acute) Fatigue (Acute) Migraine (Chronic) Exposure to STD (Acute) SVT (supraventricular tachycardia) (Chronic) DVT prophylaxis (Acute) Asthma (Chronic) Medical History (Updated 10/10/22 @ 17:31 by Sara Miller DO) Palpitations Reactive airway disease SVT (supraventricular tachycardia) Surgical History (Updated 10/10/22 @ 17:00 by Sara Miller DO) H/O eye surgery Social History (Updated 07/18/19 @ 21:44 by Nida Resendiz MD) Smoking/Tobacco Use Status: Current every day Tobacco Type: cigarettes Tobacco: How many years used: 13 Quit status: quit date established Smoking risk assessment performed?: Yes Alcohol Intake: never Drug use: Daily Substance use type: marijuana Household members: other Details: [facility] Housing: other Details: has moved back in with mother during recovery Number of Children: 1 current occupation: not employed Do you feel safe at home: Yes Do you feel safe in your relationship?: Yes History History 5 Para 1 Hx # Term Pregnancies 1 Multiple births Hx # Pregnancies Ectopic pregnancies AB induced Hx Number of Living Children 1 AB spontaneous Exam Const General: cooperative, healthy appearing and no acute distress Orientation: alert, awake and oriented x3 HENMT Head: normal to inspection Ears: hearing grossly normal bilaterally, external ears normal and TM's normal bilaterally Face and sinus: normal facial exam Eyes General: appearance normal, both eyes and all related structures Pupils: PERRL EOM: EOM intact bilaterally Neck Neck: normal visual inspection and No submandibular swelling Lymphatic: no lymphadenopathy noted Chest Chest: normal inspection of the chest and no tenderness Resp Effort & Inspection: normal respiratory effort and able to speak in complete sentences Auscultation: clear to auscultation bilaterally Cardio Rate: regular rate Rhythm: regular rhythm GI Inspection: normal to inspection Palpation: soft, not firm, not rigid and nontender Auscultation: normal bowel sounds Back/Spine/Pelvis Thoracic/Lumbar Spine: thoracic and lumbar spine normal to inspection Pelvis: no pain with anterior-posterior compression Skin General skin exam: no rashes or lesions noted Neuro General: patient alert, patient awake and patient oriented x3 Cognition: normal cognition Speech: speech normal Motor: muscle tone normal throughout Sensory Exam: no sensory deficits noted Extrem General: normal to inspection, full ROM, capillary refill normal, no calf tenderness bilaterally and no edema Psych Appearance: grossly normal Mental Status: mental status grossly normal Speech and Movement: speech and movement normal Affect: normal affect Course Vital Signs Vital signs: Vital Signs Temperature 98.4 F 10/10/22 13:18 Pulse 104 H 10/10/22 13:18 Respiratory Rate 20 10/10/22 13:18 Blood Pressure 98/58 L 10/10/22 13:18 Pulse Oximetry 100 10/10/22 13:18 Temperature 98.4 F 10/10/22 13:18 Temperature Source Temporal Artery Scan 10/10/22 13:18 Pulse 104 H 10/10/22 13:18 Respiratory Rate 16 10/10/22 14:10 Respiratory Effort Normal 10/10/22 14:10 Respiratory Depth Normal 10/10/22 14:10 Respiratory Pattern Normal 10/10/22 14:10 Blood Pressure 98/58 L 10/10/22 13:18 Blood Pressure Position Sitting 10/10/22 13:18 Pulse Oximetry 100 10/10/22 13:18 Oxygen Delivery Method Room Air 10/10/22 13:18 Oxygen Flow Rate 0 10/10/22 13:18 Pain Level 7 10/10/22 13:18 Lab/Test Results Lab/Test Results: Laboratory Tests Range/Units 10/10/22 10/10/22 10/10/22 13:56 13:56 13:56 WBC (4.4-10.8) 10^3/uL 7.88 RBC (3.93-5.22) 10^6/uL 4.67 Hgb (11.2-15.7) g/dL 13.5 Hct (36.0-46.0) % 40.6 MCV (80-95) fL 87 MCH (27.0-33.0) pg 28.9 MCHC (32.0-36.0) % 33.3 RDW (11.7-14.6) % 12.6 Plt Count (130-400) 10^3/uL 294 MPV (8.0-11.0) fL 9.0 Immature Gran % 0.3 Neutrophils % 60.3 Lymphocytes % 34.4 Monocytes % 3.3 Eosinophils % 1.1 Basophils % 0.6 Nucleated RBC % (0.0-0.3) % 0.0 Absolute Neutrophils (1.2-6.7) 10^3/uL 4.75 Absolute Lymphocytes (1.2-3.4) 10^3/uL 2.71 Absolute Monocytes (0.1-0.8) 10^3/uL 0.26 Absolute Eosinophils (0.0-0.7) 10^3/uL 0.09 Absolute Basophils (0.0-0.2) 10^3/uL 0.05 D-Dimer (<500) ng/mlFEU 308 Sodium (136-145) mmol/L 135 L Potassium (3.5-5.1) mmol/L 4.0 Chloride (98-107) mmol/L 102 Carbon Dioxide (21.0-32.0) mmol/L 23.4 Anion Gap (3-11) mmol/L 9.6 BUN (7-18) mg/dL 18 Creatinine (0.55-1.02) mg/dL 1.1 H Est GFR (CKD-EPI 2020) (mL/min/1.73m2) 66.78 Glucose (74-106) mg/dL 89 Calcium (8.5-10.1) mg/dL 9.3 Magnesium (1.8-2.4) mg/dL 1.9 Total Bilirubin (0.2-1.0) mg/dL 0.7 AST (15-37) U/L 13 L ALT (14-59) U/L 22 Alkaline Phosphatase (46-116) U/L 54 Troponin I (<or=60) ng/L < 50 Total Protein (6.4-8.2) g/dL 8.0 Albumin (3.4-5.0) g/dL 4.5 Lipase (16-77) U/L 22 Range/Units 10/10/22 13:56 WBC (4.4-10.8) 10^3/uL RBC (3.93-5.22) 10^6/uL Hgb (11.2-15.7) g/dL Hct (36.0-46.0) % MCV (80-95) fL MCH (27.0-33.0) pg MCHC (32.0-36.0) % RDW (11.7-14.6) % Plt Count (130-400) 10^3/uL MPV (8.0-11.0) fL Immature Gran % Neutrophils % Lymphocytes % Monocytes % Eosinophils % Basophils % Nucleated RBC % (0.0-0.3) % Absolute Neutrophils (1.2-6.7) 10^3/uL Absolute Lymphocytes (1.2-3.4) 10^3/uL Absolute Monocytes (0.1-0.8) 10^3/uL Absolute Eosinophils (0.0-0.7) 10^3/uL Absolute Basophils (0.0-0.2) 10^3/uL D-Dimer (<500) ng/mlFEU Sodium (136-145) mmol/L Potassium (3.5-5.1) mmol/L Chloride (98-107) mmol/L Carbon Dioxide (21.0-32.0) mmol/L Anion Gap (3-11) mmol/L BUN (7-18) mg/dL Creatinine (0.55-1.02) mg/dL Est GFR (CKD-EPI 2020) (mL/min/1.73m2) Glucose (74-106) mg/dL Calcium (8.5-10.1) mg/dL Magnesium (1.8-2.4) mg/dL Total Bilirubin (0.2-1.0) mg/dL AST (15-37) U/L ALT (14-59) U/L Alkaline Phosphatase (46-116) U/L Troponin I (<or=60) ng/L Total Protein (6.4-8.2) g/dL Albumin (3.4-5.0) g/dL Lipase (16-77) U/L Cancelled POC- Test(urine) Negative
[2022-10-10] MEDS: LORazepam 1 MG TAB PO (15:42)
[2022-10-10] MEDS: Famotidine 20 MG TAB PO (15:42)
[2022-10-10 16:07] LABS: TSH (W/Ref FT4) 0.86 uIU/mL (0.36-3.74)
[2022-10-10] MEDS: LORazepam 0.5 MG TAB 2 MG PO (17:26)
[2022-10-10 17:36] VITALS: BP 94/67; PULSE 71; RESP 14; TEMP 36.6; O2SAT 98
--- NOTE | 2022-10-10 17:53 | NUR.NOTE ---
Nursing Note: Referral faxed to [facility] Cardiology for 48hr holter monitor to be done outpatient/for palpitations, chest pain.
== END 2022-10-10 17:37 | disposition home or self-care (01) ==
PROVIDERS: Emergency Provider Physician Assistant; PCP Nurse Practitioner Family
DX: R00.2 Palpitations (principal); R07.9 Chest pain, unspecified; F41.9 Anxiety disorder, unspecified; R20.2 Paresthesia of skin
CPT/HCPCS: 36415; 80053; 81025; 83690; 93005; 99284; 71046; 83735; 84443; 84484; 85025; 85379; 93010

== ENCOUNTER 2022-12-08 10:40 | Emergency (ER) | payer MEDICAID, SELFPAY ==
[2022-12-08 10:43] VITALS: BP 87/58; PULSE 80; RESP 18; TEMP 36.6; O2SAT 100
--- NOTE | 2022-12-08 10:51 | W.ED.GENAD ---
Discharge Plan Disposition Patient Disposition: Home Condition: Improving Discharge Details Clinical Impression: Nausea, vomiting and diarrhea Primary Care Provider: Chela Garzon ED Provider: Juliette Paez Home Meds and New Rx's Prescriptions: New ondansetron 8 mg tablet,disintegrating 8 mg PO Q8H PRN (Reason: nausea and vomiting) Qty: 15 0RF lorazepam 1 mg tablet 1 mg PO TID PRN (Reason: nausea and vomiting) Qty: 15 0RF Continued Mirena 20 mcg/24 hours (6 yrs) 52 mg intrauterine device 1 device intrauterine ONCE Rx Instructions: as a single dose ibuprofen 800 MG tablet 800 mg PO Q6H PRN PRN (Reason: Pain) Qty: 20 0RF cyclobenzaprine 10 mg tablet 10 mg PO TID PRNQty: 12 0RF Patient Comments: No longer using 10/10/22 CT lidocaine [Lidoderm] 5 % adhesive patch,medicated 1 patch topical DAILY Qty: 15 0RF Patient Comments: No longer using 10/10/22 CT Rx Instructions: leave on most painful area for up to 12 hrs buspirone 5 mg tablet 5 mg PO BID Vyvanse 40 mg capsule 40 mg PO DAILY Patient Comments: TAKE 1 CAPSULE BY MOUTH EVERY DAY acetaminophen [Tylenol] 325 mg Tablet 650 mg PO Q4H PRN PRNQty: 0 0RF Discharge Instructions Instructions: Acute Nausea and Vomiting (ED) Additional Instructions: Zofran 8 mg under your tongue every 8 hours as needed for nausea and vomiting. Imodium as needed for diarrhea; follow label instructions. Use Ativan 1 mg under tongue 3 times per day as needed for nausea not controlled with Zofran. Clear fluids advancing to bland diet as tolerated. Return to ED for frankly bloody stool, belly pain localized to 1 area, fever of 100.4 or above. Discharge Data Discharge Date/Time-TO BE ENTERED AT DEPARTURE: 12/08/22 14:30 Medical Decision Making [place] patient felt a lot better after Zofran and a liter of IV fluid. After p.o. trial she felt nauseous again and was given Benadryl and Compazine. She stated that this made her feel jittery; a side effect of the Compazine. With her history of anxiety I decided to give her Ativan as this will help with both anxiety and nausea. I did give her some Zofran and Ativan to go home with. She will push clear fluids and advance to a bland diet as tolerated. She will return to the ED for fever of 100.4 or above, pain localized to 1 area, black or bloody stool, any other concerns. WBC was 17.4 thousand with a left shift and I suspect this was related to all the vomiting and diarrhea she had. She had no subsequent diarrhea in the ED. She was reevaluated multiple times. She continued to look good and wanted to go home. Her blood pressure came up with IV fluids and again has been low dating back to July. The patient only weighs 50 kg and I do not think this is horribly unusual. She was taking p.o. without difficulty prior to discharge. Medical Records Medical records reviewed: Yes I reviewed the patient's medical records. Lab Data Lab results reviewed: Yes I reviewed the patient's lab results. Lab results narrative: WBC 17.4 K with 90 polys and 5 lymphs. Sodium 146 and chloride 110 with a BUN of 20. Patient had 40 ketones in her urinalysis and 30 of protein. I suspect the elevated white blood cell count was due to all of her vomiting. HPI General Date/Time Provider Initiated Documentation: 12/08/22 10:51. HPI Narrative: This 37-year-old female patient presents with a chief complaint of nausea, vomiting, and diarrhea that awoke her at 4 AM this morning. She has vomited about 10 times and had 5 episodes of watery stool. The patient wondered about heatstroke as she was outside in the heat yesterday and did not drink a lot of water. She has had no documented fever or altered mental status and I reassured her that this was not heatstroke. She tells me that she has vomited about 10 times and had watery diarrhea about 5 times. On arrival in the ED she was diaphoretic and shivering. Her rectal temperature was normal. She denies abdominal pain or dysuria. There is no back discomfort. She has had no bloody emesis or bloody stool. Not traveled out of the country recently, drink from streams, or been camping. There have been no recent antibiotics. The patient was pale, diaphoretic, and hypotensive on arrival. She is tiny and when I looked back the past few blood pressures that she has have all been in the 90s systolic. She has not had any medication changes recently to account for this. She is not on medication for the SVT which was a single episode and resolved. Related Data Home Medications Medication Instructions Recorded Confirmed ibuprofen 800 mg tablet 800 mg PO Q6H PRN PRN Pain #20 tabs 16 10/10/22 acetaminophen 325 mg tablet 650 mg PO Q4H PRN PRN #0 tabs 04/21/18 10/10/22 (Tylenol) levonorgestrel 21 mcg/24 hours (8 1 device intrauterine ONCE 06/06/20 10/10/22 yrs) 52 mg intrauterine device (Mirena) cyclobenzaprine 10 mg tablet 10 mg PO TID PRN #12 tabs 07/17/20 lidocaine 5 % topical patch 1 patch topical DAILY #15 ea 07/17/20 (Lidoderm) buspirone 5 mg tablet 5 mg PO BID 10/10/22 10/10/22 lisdexamfetamine 40 mg capsule 40 mg PO DAILY 10/10/22 10/10/22 (Vyvanse) lorazepam 1 mg tablet 1 mg PO TID PRN nausea and 12/08/22 vomiting #15 tabs ondansetron 8 mg disintegrating 8 mg PO Q8H PRN nausea and 12/08/22 tablet vomiting #15 tabs Previous Rx's Medication Instructions Recorded ibuprofen 800 mg tablet 800 mg PO Q6H PRN PRN Pain #20 tabs 08/29/15 acetaminophen 325 mg tablet 650 mg PO Q4H PRN PRN #0 tabs 04/21/18 (Tylenol) cyclobenzaprine 10 mg tablet 10 mg PO TID PRN #12 tabs 07/17/20 lidocaine 5 % topical patch 1 patch topical DAILY #15 ea 07/17/20 (Lidoderm) lorazepam 1 mg tablet 1 mg PO TID PRN nausea and 12/08/22 vomiting #15 tabs ondansetron 8 mg disintegrating 8 mg PO Q8H PRN nausea and 12/08/22 tablet vomiting #15 tabs Allergies Allergy/AdvReac Type Severity Reaction Status Date / Time No Known Allergies Allergy Verified 12/08/22 10:48 General Stated Complaint: Nausea/Vomit/Diar SREEDHAR: 2 Review of Systems Constitutional Constitutional: Denies chills, Denies fever(s), Denies headache(s) and Denies weakness Eyes Eyes: Denies diplopia and Reports other (no redness) ENT Ears, Nose, Mouth, and Throat: Denies otalgia, Denies headache(s), Denies nasal congestion, Denies nasal discharge, Denies neck pain and Denies sore throat Cardiovascular Cardiovascular: Denies chest pain, Denies palpitations and Denies dyspnea Respiratory Respiratory: Denies cough and Denies dyspnea Gastrointestinal Gastrointestinal: Denies abdominal pain, Reports diarrhea, Reports nausea and Reports vomiting Genitourinary Genitourinary: Denies dysuria Musculoskeletal Musculoskeletal: Denies myalgias, Denies muscle weakness, Denies neck pain, Denies numbness and Reports other (edema) Integumentary/Breasts Skin/Breast: Denies change in pigmentation and Denies rash Neurologic Neurologic: Denies headache(s), Denies numbness and Denies weakness Endocrine Endocrine: Denies palpitations PFSH All Active Problems Nausea, vomiting and diarrhea (Acute) Reactive airway disease (Acute) Tobacco use (Chronic) 07/2019 patient counseled regarding cessation LGSIL on Pap smear of cervix (Acute) 05/201907/05/2019 colpo directed biopsies: REBECCA-1. Plan repeat Pap in 1 year Substance abuse (Acute) 07/2019. History of EtOH use. Completed [place] currently clean and sober Anxiety and depression (Acute) IUD (intrauterine device) in place (Chronic 06/06/20) Mirena Sleep disorder (Acute) Fatigue (Acute) Migraine (Chronic) Exposure to STD (Acute) SVT (supraventricular tachycardia) (Chronic) DVT prophylaxis (Acute) Asthma (Chronic) Medical History Palpitations Reactive airway disease SVT (supraventricular tachycardia) Surgical History H/O eye surgery Social History Smoking/Tobacco Use Status: Current every day Tobacco Type: cigarettes Tobacco: How many years used: 13 Quit status: quit date established Smoking risk assessment performed?: Yes Alcohol Intake: never Drug use: Daily Substance use type: marijuana Household members: other Details: Lalitha Smith Housing: other Details: has moved back in with mother during recovery Number of Children: 1 current occupation: not employed Do you feel safe at home: Yes Do you feel safe in your relationship?: Yes History History 5 Para 1 Hx # Term Pregnancies 1 Multiple births Hx # Pregnancies Ectopic pregnancies AB induced Hx Number of Living Children 1 AB spontaneous Exam Const General: no acute distress, well developed, well groomed and not in acute distress Nutritional Appearance: well nourished Orientation: alert and oriented x3 HENMT Head: normocephalic and atraumatic Ears: external ears normal Mouth: oropharynx normal and moist mucous membranes Throat: posterior oropharynx normal Eyes Conjunctivae: conjunctivae normal Neck Neck: full ROM and supple Chest Chest: normal inspection of the chest Resp Effort & Inspection: normal respiratory effort Auscultation: clear to auscultation bilaterally Cardio Rate: regular rate Rhythm: regular rhythm Heart Sounds: no murmurs and no rubs GI Inspection: normal to inspection Palpation: soft, nontender and other (non distended) Auscultation: normal bowel sounds Skin General skin exam: no rashes or lesions noted and other (pink, warm, dry) Neuro General: patient alert, patient awake and patient oriented x3 Speech: speech normal Motor: other (MCGINNIS) Sensory Exam: no sensory deficits noted Extrem General: normal to inspection, full ROM and pedal edema present Psych Mental Status: mental status grossly normal Speech and Movement: speech and movement normal Affect: normal affect Course Vital Signs Vital signs: Vital Signs Temperature 36.6 C 12/08/22 10:43 Pulse 80 12/08/22 10:43 Respiratory Rate 18 12/08/22 10:43 Blood Pressure 87/58 L 12/08/22 10:43 Pulse Oximetry 100 12/08/22 10:43 Temperature 36.6 C 12/08/22 10:43 Temperature Source Oral 12/08/22 10:43 Pulse 80 12/08/22 10:43 Respiratory Rate 18 12/08/22 10:43 Blood Pressure 87/58 L 12/08/22 10:43 Blood Pressure Position Sitting 12/08/22 10:43 Pulse Oximetry 100 12/08/22 10:43 Oxygen Delivery Method Room Air 12/08/22 10:43 Oxygen Flow Rate 0 12/08/22 10:43 Pain Level 5 12/08/22 10:43
[2022-12-08 11:17] LABS: Abs Immature Grans 0.09 10^3/uL (0.0-0.06); Absolute Basophil Count 0.05 10^3/uL (0.0-0.2); Absolute Lymphocyte Count 0.88 10^3/uL (1.2-3.4); Absolute Monocyte Count 0.54 10^3/uL (0.1-0.8); BE (Venous) -2 mmol/L (-2-3); Basophils % 0.3; Eosinophils % 0.7; HCO3 (Venous) 23 mmol/L (23-28); HCT 41.6 % (36.0-46.0); HGB 13.8 g/dL (11.2-15.7); Immature Grans % 0.5; Lymphocytes % 5.1; MCH 28.9 pg (27.0-33.0); MCHC 33.2 % (32.0-36.0); MCV 87 fL (80-95); MPV 9.3 fL (8.0-11.0); Monocytes % 3.1; Neutrophils % 90.3; O2 Sat (Venous) 61 %; Platelet Count 280 10^3/uL (130-400); RBC 4.78 10^6/uL (3.93-5.22); RDW 12.8 % (11.7-14.6); RDW-SD 40.8 fL; TCO2 (Venous) 21 mmol/L (24-29); WBC 17.35 10^3/uL (4.4-10.8); pCO2 (Venous) 43 mmHg (41-51); pH (Venous) 7.34 (7.31-7.41); pO2 (Venous) 32 mmHg
[2022-12-08 11:19] LABS: Lactate 1.1 mmol/L (0.6-1.4)
[2022-12-08] MEDS: Normal Saline 1,000 ML 1000 ML IV ×2 (11:20→12:33)
[2022-12-08 11:21] LABS: Absolute Eosinophil Count 0.12 10^3/uL (0.0-0.7); Absolute Neutrophil Count 15.67 10^3/uL (1.2-6.7)
[2022-12-08] MEDS: Ondansetron 4 MG/2 ML VIAL (11:21)
[2022-12-08 11:22] VITALS: TEMP 36.8
--- NOTE | 2022-12-08 11:31 | NUR.NOTE ---
Nursing Note: Assumed care of pt after triage. Pt is diaphoretic, rigorous, and vomiting. 18g RAC placed, zofran and fluids given per JUL. Rectal temp done per request of MD and normal as charted.
[2022-12-08 11:34] VITALS: BP 110/68; PULSE 75; RESP 20; O2SAT 100
[2022-12-08 12:05] LABS: ALT 25 U/L (14-59); AST 21 U/L (15-37); Albumin 4.3 g/dL (3.4-5.0); Alkaline Phosphatase 59 U/L (46-116); Anion Gap 10.7 mmol/L (3-11); BUN 20 mg/dL (7-18); Bilirubin, Total 0.8 mg/dL (0.2-1.0); CO2 25.3 mmol/L (21.0-32.0); Calcium 8.7 mg/dL (8.5-10.1); Chloride 110 mmol/L (98-107); Estimated GFR 74.88 (mL/min/1.73m2); Glucose 108 mg/dL (74-106); Potassium 4.4 mmol/L (3.5-5.1); Sodium 146 mmol/L (136-145); Total Protein 7.7 g/dL (6.4-8.2)
[2022-12-08 12:25] VITALS: TEMP 36.7
[2022-12-08] MEDS: diphenhydrAMINE 50 MG/ML VIAL 25 MG IVP (12:33)
[2022-12-08] MEDS: Prochlorperazine 10 MG/2 ML VIAL IVP (12:34)
[2022-12-08 12:36] LABS: Bilirubin Small (Negative); Blood Trace-intact (Negative); Clarity Clear (Clear); Glucose Negative (Negative); Ketones 40 mg/dL (Negative); Leukocyte Esterase Negative (Negative); Nitrite Negative (Negative); Specific Gravity 1.025 (1.005-1.025); Urobilinogen 0.2 mg/dL (Up to 0.2); pH 6.5 (5-8)
[2022-12-08 12:51] LABS: Bacteria Rare HPF (Negative); C & S Indicated? No/Sq. Contamination; Casts Negative LPF (Negative); Crystals Negative HPF (Negative); Epithelial Cells Moderate HPF (Negative); Mucus Heavy (Negative); WBC 0-2 HPF (0-5)
[2022-12-08] MEDS: LORazepam 2 MG/ML VIAL 1 MG IVP (14:25)
[2022-12-08 14:30] VITALS: BP 116/78; PULSE 75; RESP 20; TEMP 37; O2SAT 99
== END 2022-12-08 14:30 | disposition home or self-care (01) ==
PROVIDERS: Emergency Provider Emergency Medicine; PCP Nurse Practitioner Family
DX: R11.2 Nausea with vomiting, unspecified (principal); R19.7 Diarrhea, unspecified
CPT/HCPCS: 80053; 81025; 82805; 87040; 96361; 96374; 96375; 99284; 81003; 81015; 83605; 85025; J0780; J1200; J2060; J2405

== ENCOUNTER 2024-06-08 14:07 | Outpatient (REF) | payer MEDICAID, SELFPAY ==
--- NOTE | 2024-06-08 12:30 | PAPFT_PTH ---
PATIENT: Jolene Carlin LOC: [facility] U#:[id number] AGE/SX: 39/F ROOM: RE06/08/[address]: Chela Garzon : 1985 BED: DIS: 06/08/2024 SPEC #: [id number] RECD: 06/08/24 18:17 STATUS: MELISSA REQ #: [id number] LYUDMILA: 06/08/24 12:[address]: Chela Garzon DEPT: [facility] Cytology RECD BY: Fartun Sanchez ENTERED: 06/08/24 18:17 SP TYPE: PAPFT OTHR DR: Unknown,Unknown Tissues: 1 - CX/ENDOCX FOR PAP SMEARS Procedures: PAP THIN PREP/UVM Screening HPV DNA PROBE Comments: [id number] (HPV 16 & 18/45) (CHLAMYDIA/GC)
[2024-06-08 19:25] LABS: ALT 16 U/L (14-59); AST 10 U/L (15-37); Albumin 3.9 g/dL (3.4-5.0); Alkaline Phosphatase 83 U/L (46-116); Anion Gap 5.6 mmol/L (3-11); BUN 15 mg/dL (7-18); Bilirubin, Total 0.15 mg/dL (0.2-1.0); CO2 29.4 mmol/L (21.0-32.0); CREATININE 0.9 mg/dL (0.55-1.02); Calcium 9.2 mg/dL (8.5-10.1); Chloride 107 mmol/L (98-107); Estimated GFR 83.92 (mL/min/1.73m2); Glucose 91 mg/dL (74-106); Potassium 4.1 mmol/L (3.5-5.1); Sodium 142 mmol/L (136-145); TSH 0.91 uIU/mL (0.36-3.74); Total Protein 7.2 g/dL (6.4-8.2)
[2024-06-08 19:26] LABS: Abs Immature Grans 0.04 10^3/uL (0.0-0.06); Absolute Basophil Count 0.09 10^3/uL (0.0-0.2); Absolute Eosinophil Count 0.21 10^3/uL (0.0-0.7); Absolute Lymphocyte Count 3.12 10^3/uL (1.2-3.4); Absolute Monocyte Count 0.42 10^3/uL (0.1-0.8); Absolute Neutrophil Count 7.34 10^3/uL (1.2-6.7); Basophils % 0.8 %; Eosinophils % 1.9 %; HCT 37.2 % (36.0-46.0); Immature Grans % 0.4 %; Lymphocytes % 27.8 %; MCH 28.7 pg (27.0-33.0); MCHC 32.3 % (32.0-36.0); MCV 89 fL (80-95); MPV 10.6 fL (8.0-11.0); Monocytes % 3.7 %; Neutrophils % 65.4 %; Platelet Count 331 10^3/uL (130-400); RBC 4.18 10^6/uL (3.93-5.22); RDW 12.6 % (11.7-14.6); RDW-SD 41.3 fL; WBC 11.22 10^3/uL (4.4-10.8)
[2024-06-09 11:16] LABS: Chlamydia Result Negative (Negative); GC Result Negative (Negative)
[2024-06-09 19:28] LABS: FSH 2.9 mIU/mL (See Note)
== END 2024-06-08 14:08 | disposition home or self-care (01) ==
LOC: NCHCN 14:07
PROVIDERS: Visit Provider Nurse Practitioner Family
DX: N89.8 Other specified noninflammatory disorders of vagina (principal); F41.9 Anxiety disorder, unspecified; F33.9 Major depressive disorder, recurrent, unspecified
CPT/HCPCS: 80053; 87491; 87591; 88142; 83001; 84439; 84443; 85025; 87624